=== PATIENT | female | born 1935 | race Caucasian/White ===

== ENCOUNTER 2016-05-06 05:17 | Inpatient (IN) | payer MEDICARE ==
[~2016-05-06] VITALS: Ht 157.5 cm; Wt 58.0 kg
[~2016-05-06 05:17] MED LIST: ACTONEL35 MG PO; HYDROCHLORO25 MG/TAB PO; LIPITOR10 MG PO; METOPROL TAR50 MG PO; PRILOSEC20 MG/CAP PO; TOPROL XL50 MG PO; XALATAN 0.005%2.5 ML OD; XALATAN 0.005%2.5 ML OU
[2016-05-06] MEDS ORDERED: INDERAL 20MG TA20 MG PO (05:51)
[2016-05-06] MEDS ORDERED: PRILOSEC20 MG/CAP PO (05:53)
[2016-05-06] MEDS ORDERED: VITAMIN D1000 UNIT PO (05:55)
[2016-05-06] MEDS ORDERED: CALTRATE 600 PO (05:56)
--- NOTE | 2016-05-06 06:00 | NUR ---
ARRIVED VIA [facility]. ALERT ORIENTED X 3. FEBRILE, WORKUP INITIATED. AT THE BEDSIDE
[2016-05-06 06:14] LABS: HEMATOCRIT 38.6 % (37.0-47.0); HEMOGLOBIN 12.4 g/dl (12.0-16.0); IMMATURE GRANULOCYTES 0.2 % (0.0-1.0); MEAN CELL VOLUME 91.7 fL CALC (80.0-100.0); MEAN CORPUSCULAR HGB 29.5 pG CALC (26.0-32.0); MEAN CORPUSCULAR HGB CONC 32.1 g/L CALC (32.0-36.0); NEUT# 4.9 thou/uL (2.00-7.15); RED BLOOD COUNT 4.21 mill/uL (4.20-5.60); RED CELL DISTRI WIDTH 13.2 % (11.5-15.5)
[2016-05-06 06:16] LABS: URINE BILIRUBIN - DIPSTICK NEGATIVE (NEGATIVE); URINE BLOOD DIPSTICK SMALL (NEGATIVE); URINE CLARITY CLEAR; URINE COLOR YELLOW; URINE GLUCOSE - DIPSTICK NEGATIVE (NEGATIVE); URINE KETONE NEGATIVE (NEGATIVE); URINE LEUK ESTERASE NEGATIVE (NEGATIVE); URINE NITRITE - DIPSTICK NEGATIVE (Negative); URINE PROTEIN - DIPSTICK NEGATIVE (NEG-TRACE); URINE SPECIFIC GRAVITY 1.015; URINE UROBILINOGEN - DIPSTICK 0.2 E.U./dL (0.2)
[2016-05-06 06:31] LABS: ALBUMIN 4.2 g/dL (3.2-5.0); BILIRUBIN, TOTAL 0.5 mg/dL (0.0-1.4); CALCIUM 9.5 mg/dL (8.4-10.2); CREATININE 1.8 mg/dL (0.5-1.0); POTASSIUM 4.7 mmol/l (3.5-5.1); TOTAL PROTEIN 7.4 g/dL (6.3-8.2)
[2016-05-06 06:38] LABS: INFLUENZA A NONE DETECTED (NONE DETECT); INFLUENZA B NONE DETECTED (NONE DETECT)
[2016-05-06 06:41] LABS: URINE AMORPH SEDIMENT FEW hpf (NONE-FEW); URINE BACTERIA FEW hpf; URINE HYALINE CAST FEW lpf (NONE-RARE); URINE RBC 0-2 RBC/hpf (0-5); URINE SQUAMOUS EPITHELIAL CELL FEW EPI/hpf (0-FEW); URINE WBC 0-2 WBC/hpf (0-5)
--- NOTE | 2016-05-06 06:45 | NUR ---
RECEIVED CARE OF PT. PT AWAKW ALERT AND ORIENTED X3. PT STATES SHE "JUST FEELS WEAK". IV NS INFUSING HL LT HAND ORDERED.VSS. NORESP DISTRESS. O2 SAT 94% ON RA
--- NOTE | 2016-05-06 07:08 | NUR ---
ATTEMPTED TO CALL REPORT ,NURSE IN WITH PT WILL RETURN CALL.
--- NOTE | 2016-05-06 07:22 | NUR ---
CALLED REPORT TO MONROE AVINA [facility]
--- NOTE | 2016-05-06 07:23 | NUR ---
PT TRANSPORTED TO [facility] VIA STRETCHER. TRANSFERRED TO BED WITH TWO PRINCIPAL RESEARCH ECONOMIST.NO RESP DISRTESS NOTED. IN ATTENDANCE AND TOOK PTS BELONGINGS WITH HIM INCLUDING WALLET.
[2016-05-06 07:30] VITALS: BP 118/45
--- NOTE | 2016-05-06 07:30 | NUR ---
PT ARRIVED TO FLOOR VIA STRETCHER ACCOMPANIED BY MONROE CENTENO. PT VERY WEAK, UNSTEADY GAIT. 2 STAFF ASSIST TO BED. PT DENIES PAIN. REPORTS FATIGUE. COMPLAINS OF NON-PRODUCTIVE COUGH. FALL PRECAUTIONS REINFORCED. PLAN OF CARE DISCUSSED. REPORTING OF CONCERNS ENCOURAGED. PT ORIENTED TO ROOM AND EQUIPMENT. CALL LIGHT REVIEWED AND IN REACH. PT STATES UNDERSTANDING.
[2016-05-06 07:41] VITALS: BP 118/45
[2016-05-06 10:56] VITALS: BP 110/64
[2016-05-06] MEDS ORDERED: LOPRESSOR50 M1 PO (11:50)
--- NOTE | 2016-05-06 13:37 | NUR ---
PT SLEEPING AT THIS TIME.
[2016-05-06 15:15] VITALS: BP 153/73
--- NOTE | 2016-05-06 16:36 | NUR ---
PT ASSISTED TO BSC. PT WEAK. TREMORS NOTED TO BIALTERAL HANDS AND ARMS. UNSTEADY ON FEET. FALL PRECAUTIONS REINFORCED. PT STATES UNDERSTANDING.
--- NOTE | 2016-05-06 17:33 | NUR ---
INCENTIVE SPIROMETER PROVIDED. 1000 ML INCENTIVE VOLUME ACHIEVED, GOAL OF 1500 ML SET. HOLDING OF MACHINE DIFFICULT R/T HAND TREMORS. ASSISTANCE NEEDED. PTINSTRUCTED ON USE AND INDICATION. PT STATES UNDERSTANDING. MULTIPLE FAMILY MEMBERS AT BEDSIDE. WILL CONTINUE TO MONITOR.
--- NOTE | 2016-05-06 18:07 | NUR ---
TEMP OF 101.[address] PRICE NOTIFIED. ORDER TO TYLENOL PO GIVEN. PT ASSISTED TO BSC. VERY WEAK, MAX ASSIST.
--- NOTE | 2016-05-06 19:15 | NUR ---
BEDSIDE REPORT RECEIVED FROM MONROE AVINA. PT DENIES PAIN AT THIS TIME. RESPIRATIONS EVEN AND UNLABORED. INSENTIVE SPIROMETED AT BEDSIDE AND BEING USED. PLAN OF CARE DISCUSSED. ENCOURAGED TO VERBALIZE CONCERNS. STATES UNDERSTANDING. FAMILY AT BEDSIDE. UP TO BSC AT THIS TIME. CALL LIGHT SYSTEM REVIEWED AND IN REACH.
[2016-05-06 19:19] VITALS: BP 146/75
[2016-05-06 23:21] VITALS: BP 131/71
[2016-05-07] VITALS (7 sets, daily range): BP systolic 114–204; BP diastolic 63–89
--- NOTE | 2016-05-07 | NUR ---
PT UP TO BEDSIDE COMMODE X 3 SO FAR THIS SHIFT. STATES THAT FREQUENCY IS NORMAL FOR HER. EMS SITE TO LEFT HAND DISCONTINUED AND NEW SITE TO RIGHT FORARM BEGAN AND APPEARS HEALTHY AND PATENT. IV FLUIDS INFUSING ADEQUATELY. PT DENIES PAIN AT THIS TIME. RESPIRATIONS EVEN AND UNLABORED. SAFETY MEASURES IN PLACE. CALL LIGHT IN REACH.
--- NOTE | 2016-05-07 04:23 | NUR ---
PT ASLEEP AT THIS TIME. NO PAIN OR DISCOMFORT NOTED. RESPIRATIONS EVEN AND UNLABORED. SAFETY MEASURES IN PLACE. CALL LIGHT WITHIN REACH.
[2016-05-07 05:05] LABS: HEMATOCRIT 38.2 % (37.0-47.0); HEMOGLOBIN 11.9 g/dl (12.0-16.0); MEAN CELL VOLUME 92.5 fL CALC (80.0-100.0); MEAN CORPUSCULAR HGB 28.8 pG CALC (26.0-32.0); MEAN CORPUSCULAR HGB CONC 31.2 g/L CALC (32.0-36.0); NEUT# 2.55 thou/uL (2.00-7.15); RED BLOOD COUNT 4.13 mill/uL (4.20-5.60); RED CELL DISTRI WIDTH 13.2 % (11.5-15.5)
[2016-05-07 05:14] LABS: CALCIUM 8.9 mg/dL (8.4-10.2); CREATININE 1.4 mg/dL (0.5-1.0); POTASSIUM 4.5 mmol/l (3.5-5.1)
--- NOTE | 2016-05-07 07:00 | NUR ---
SHIFT CHANGE REPORT FORM JAI MICHELE AWAKE ALERT AND ORIENTED SITTING UP IN RECLINER, DENIES PAIN/DISCOMFORT, IVF INFUSING, CALL SHETH IN REACH.
--- NOTE | 2016-05-07 12:00 | NUR ---
SITTING UP IN RECLINER HAVING MEAL, ALL NEEDS ADDRESSED, CALL SHETH IN REACH.
--- NOTE | 2016-05-07 16:00 | NUR ---
ASSISTED FROM RECLINER TO BR AND BACK TO CHAIR, FAMILY AT BEDSIDE, CALL SHETH IN REACH.
--- NOTE | 2016-05-07 20:07 | NUR ---
BEDSIDE REPORT RECEIVED FROM MONROE CONCEPCION. PT RESTING IN BED WITH FAMILY AT BEDSIDE. DENIES PAIN. RESPIRATIONS EVEN AND UNLABORED. UNDERSTANDS PLAN OF CARE. ENCOURAGED TO VERBALIZE CONCERNS. STATES UNDERSTANDING. SAFETY MEASURES IN PLACE. CALL LIGHT SYSTEM REVIEWED AND IN REACH.
--- NOTE | 2016-05-08 00:33 | NUR ---
PT ASLEEP AT THIS TIME. NO SIGNS OF PAIN OR DISCOMFORT. RESPIRATIONS EVEN AND UNLABORED. PT UP TO BSC X 4 THIS SHIFT TO VOID. STRENGTH HAS IMPROVED SINCE YESTERDAY. AT 2145 ER E/M ENGINEER CALLED TO REPORT RHYTHM CHANGES. EKG ORDERED AND DR. MOORE NOTIFIED OF RESULTS. NO NEW ORDERS AT THIS TIME. PT UNSYMPTOMATIC. SAFETY MEASURES IN PLACE. CALL LIGHT WITHIN REACH.
[2016-05-08 01:35] VITALS: BP 132/89
--- NOTE | 2016-05-08 04:14 | NUR ---
PT UP TO BSC. VOIDING FREQUENT SMALL AMOUNTS. DENIES PAIN AND SOB. IV SITE APPEARS HEALTHY AND IS PATENT. PT HAS NO REQUESTS AT THIS TIME. SAFETY MEASURES REMAIN IN PLACE. CALL LIGHT WITHIN REACH.
[2016-05-08 04:58] LABS: HEMATOCRIT 40.7 % (37.0-47.0); HEMOGLOBIN 13.1 g/dl (12.0-16.0); IMMATURE GRANULOCYTES 0.3 % (0.0-1.0); MEAN CELL VOLUME 90.8 fL CALC (80.0-100.0); MEAN CORPUSCULAR HGB 29.2 pG CALC (26.0-32.0); MEAN CORPUSCULAR HGB CONC 32.2 g/L CALC (32.0-36.0); NEUT# 1.83 thou/uL (2.00-7.15); RED BLOOD COUNT 4.48 mill/uL (4.20-5.60); RED CELL DISTRI WIDTH 13.1 % (11.5-15.5)
[2016-05-08 05:00] VITALS: BP 167/87
[2016-05-08 05:22] LABS: ALBUMIN 3.5 g/dL (3.2-5.0); BILIRUBIN, TOTAL 0.4 mg/dL (0.0-1.4); CALCIUM 9.5 mg/dL (8.4-10.2); CREATININE 1.4 mg/dL (0.5-1.0); POTASSIUM 4.3 mmol/l (3.5-5.1); TOTAL PROTEIN 6.3 g/dL (6.3-8.2)
[2016-05-08 08:10] VITALS: BP 157/90
--- NOTE | 2016-05-08 08:10 | NUR ---
PT IS SITTING UP IN THE CHAIR., NO DISTRESS NOTED. IV SITE IS FREE FROM REDNESS OR EDEMA. ASSESSMENT IS COMPLETED:
[2016-05-08] MEDS ORDERED: LEVAQUIN500 MG PO (10:10)
[2016-05-08 10:47] VITALS: BP 169/79
--- NOTE | 2016-05-08 11:58 | NUR ---
IV SITE IS DISCONITNUED CATHETE INTACT. NO REDNESS OR EDEMA. TELE MONITOR OFF. DISCHARGE INSTRUCTIONS GIVEN AND VERBALIZED UNDERSTANDING.FAMILY IN THE ROOM. Discharge instructions given. Patient verbalizes understanding of same. Discharged in stable condition via Wheelchair to Home with family. All belongings sent with pt.
--- NOTE | 2016-05-08 12:02 | NUR ---
SPOKE WITH NAYLA TREJO RN FROM HOME HEALTH WILL SEE PT TOMORROW. WILL CALL LATER TODAY
== END 2016-05-08 11:00 | DRG 203 ==
LOC: ENPENDDIS → ED 05:17 → ED-I 06:41 → ED 06:45 → MS2 06:46
PROVIDERS: Emergency Medicine; Internal Medicine; ADMIT Internal Medicine; ATTEND Internal Medicine
DX: J20.9 Acute bronchitis, unspecified (principal); E86.0 Dehydration; I10 Essential (primary) hypertension; E78.5 Hyperlipidemia, unspecified; R25.1 Tremor, unspecified

== ENCOUNTER 2017-04-16 09:38 | Emergency (ER) | payer MEDICARE ==
[~2017-04-16] VITALS: Ht 157.5 cm; Wt 58.2 kg
[~2017-04-16 09:38] MED LIST changes: +CALTRATE 600 PO; +INDERAL 20MG TA20 MG PO; +LEVAQUIN500 MG PO; +LOPRESSOR50 M1 PO; +VITAMIN D1000 UNIT PO
[2017-04-16] MEDS ORDERED: JANTOVEN3 MG PO ×2 (09:47→09:48)
[2017-04-16 11:13] LABS: HEMOGLOBIN 10.8 g/dl (12.0-16.0); IMMATURE GRANULOCYTES 0.1 % (0.0-1.0); MEAN CELL VOLUME 94.7 fL CALC (80.0-100.0); MEAN CORPUSCULAR HGB 30.1 pG CALC (26.0-32.0); MEAN CORPUSCULAR HGB CONC 31.8 g/L CALC (32.0-36.0); NEUT# 6.97 thou/uL (2.00-7.15); RED BLOOD COUNT 3.59 mill/uL (4.20-5.60); RED CELL DISTRI WIDTH 13.3 % (11.5-15.5)
[2017-04-16 11:26] LABS: ALBUMIN 3.3 g/dL (3.2-5.0); BILIRUBIN, TOTAL 0.7 mg/dL (0.0-1.4); CREATININE 1.6 mg/dL (0.5-1.0); POTASSIUM 4.6 mmol/l (3.5-5.1); TOTAL PROTEIN 5.7 g/dL (6.3-8.2)
[2017-04-16 11:34] LABS: INTERNATIONAL NORMALIZED RATIO 5.3 RATIO (0.7-1.3); PROTHROMBIN TIME 61.7 SECONDS (9.0-12.5)
[2017-04-16] MEDS ORDERED: HYDROCO/APAP1 TA9 PO (17:53)
[2017-04-16] MEDS ORDERED: MOTRIN400 MG PO (17:53)
[2017-04-16] MEDS ORDERED: MIRALAX3350 N1 PO (18:03)
[2017-04-16 18:15] VITALS: BP 127/57
== END 2017-04-16 18:30 | disposition home or self-care (01) ==
LOC: ED 09:38
PROVIDERS: Family Medicine
PROC: 0RSJXZZ Reposition Right Shoulder Joint, External Approach (ICD-10-PCS; principal; 2017-04-16)
DX: S43.031A Inferior subluxation of right humerus, initial encounter (principal); I48.91 Unspecified atrial fibrillation; G20 Parkinson's disease; K21.9 Gastro-esophageal reflux disease without esophagitis; X50.0XXA Overexertion from strenuous movement or load, initial encounter; Y93.9 Activity, unspecified; Y92.009 Unspecified place in unspecified non-institutional (private) residence as the place of occurrence of the external cause

== ENCOUNTER 2018-08-09 09:40 | Inpatient (IN) | payer MEDICARE ==
[2018-08-09] VITALS (17 sets, daily range): BP systolic 91–219; BP diastolic 45–84
[~2018-08-09] VITALS: Ht 152.4 cm; Wt 58.1 kg
[~2018-08-09 09:40] MED LIST changes: +HYDROCO/APAP1 TA9 PO; +JANTOVEN3 MG PO; +MIRALAX3350 N1 PO; +MOTRIN400 MG PO
[2018-08-09 11:08] LABS: HEMATOCRIT 35.5 % (37.0-47.0); HEMOGLOBIN 11.2 g/dl (12.0-16.0); IMMATURE GRANULOCYTES 0.3 % (0.0-5.0); MEAN CELL VOLUME 93.7 fL CALC (80.0-100.0); MEAN CORPUSCULAR HGB 29.6 pG CALC (26.0-32.0); MEAN CORPUSCULAR HGB CONC 31.5 g/L CALC (32.0-36.0); NEUT# 3.95 thou/uL (2.00-7.15); RED BLOOD COUNT 3.79 mill/uL (4.20-5.60); RED CELL DISTRI WIDTH 13.9 % (11.5-15.5)
[2018-08-09 11:25] LABS: INTERNATIONAL NORMALIZED RATIO 2.2 RATIO (0.7-1.3); PROTHROMBIN TIME 22.4 SECONDS (9.0-12.5)
[2018-08-09 11:32] LABS: ALBUMIN 3.7 g/dL (3.2-5.0); BILIRUBIN, TOTAL 0.6 mg/dL (0.0-1.4); CREATININE 1.7 mg/dL (0.5-1.0); TOTAL PROTEIN 6.2 g/dL (6.3-8.2)
[2018-08-09 11:35] LABS: POTASSIUM 5.2 mmol/l (3.5-5.1)
[2018-08-09 13:02] LABS: URINE BILIRUBIN - DIPSTICK NEGATIVE (NEGATIVE); URINE BLOOD DIPSTICK NEGATIVE (NEGATIVE); URINE COLOR YELLOW; URINE GLUCOSE - DIPSTICK NEGATIVE (NEGATIVE); URINE KETONE NEGATIVE (NEGATIVE); URINE NITRITE - DIPSTICK NEGATIVE (Negative); URINE PH 5.5 (4.5-8.0); URINE PROTEIN - DIPSTICK TRACE mg/dL (NEG-TRACE); URINE SPECIFIC GRAVITY 1.015; URINE UROBILINOGEN - DIPSTICK 0.2 E.U./dL (0.2)
[2018-08-09 13:04] LABS: URINE LEUK ESTERASE LARGE (NEGATIVE)
[2018-08-09] MEDS ORDERED: ALENDRONATE70 MG PO (13:07)
[2018-08-09] MEDS ORDERED: DITROPAN PO (13:08)
[2018-08-09 13:12] LABS: URINE BACTERIA MANY hpf; URINE WBC >100 WBC/hpf (0-5)
[2018-08-09] MEDS ORDERED: CYANOCOBAL1000 MCG/M IM (13:12)
[2018-08-09 13:13] LABS: URINE SQUAMOUS EPITHELIAL CELL MODERATE EPI/hpf (0-FEW); URINE TRANSITIONAL EPI. CELLS FEW hpf
[2018-08-09] MEDS ORDERED: CARB/LEVO SR PO (13:14)
[2018-08-10] VITALS (14 sets, daily range): BP systolic 95–200; BP diastolic 51–84
[2018-08-10 03:46] LABS: HEMATOCRIT 36.4 % (37.0-47.0); HEMOGLOBIN 11.6 g/dl (12.0-16.0); IMMATURE GRANULOCYTES 0.2 % (0.0-5.0); MEAN CELL VOLUME 93.1 fL CALC (80.0-100.0); MEAN CORPUSCULAR HGB 29.7 pG CALC (26.0-32.0); MEAN CORPUSCULAR HGB CONC 31.9 g/L CALC (32.0-36.0); NEUT# 3.57 thou/uL (2.00-7.15); RED BLOOD COUNT 3.91 mill/uL (4.20-5.60)
[2018-08-10 04:05] LABS: ALBUMIN 3.5 g/dL (3.2-5.0); ALKALINE PHOSPHATASE 81 u/l (38-126); ANION GAP 11 (6-22 (CALC)); BILIRUBIN, TOTAL 0.6 mg/dL (0.0-1.4); BUN 40 mg/dL (8-23); BUN/CREATININE RATIO 25 (12-20 (CALC)); CARBON DIOXIDE 22 mmol/l (22-30); CHLORIDE 112 mmol/l (95-108); CREATININE 1.6 mg/dL (0.5-1.0); GFR 31 ML/MIN (>=60 (CALC)); GFR FOR AFR.AMER. 37 ML/MIN (>=60 (CALC)); POTASSIUM 5.1 mmol/l (3.5-5.1); SGOT/AST 20 u/l (9-36); SODIUM 140 mmol/l (137-146)
[2018-08-10 04:11] LABS: MAGNESIUM 1.9 mg/dL (1.6-2.3)
[2018-08-11] VITALS (7 sets, daily range): BP systolic 120–176; BP diastolic 59–74
[2018-08-11 05:16] LABS: HEMATOCRIT 34.1 % (37.0-47.0); HEMOGLOBIN 10.9 g/dl (12.0-16.0); IMMATURE GRANULOCYTES 0.2 % (0.0-5.0); MEAN CELL VOLUME 92.9 fL CALC (80.0-100.0); MEAN CORPUSCULAR HGB 29.7 pG CALC (26.0-32.0); NEUT# 3.56 thou/uL (2.00-7.15); RED BLOOD COUNT 3.67 mill/uL (4.20-5.60)
[2018-08-11 05:33] LABS: INTERNATIONAL NORMALIZED RATIO 2.6 RATIO (0.7-1.3); PROTHROMBIN TIME 27.2 SECONDS (9.0-12.5)
[2018-08-11 06:03] LABS: ALBUMIN 3.2 g/dL (3.2-5.0); ALKALINE PHOSPHATASE 77 u/l (38-126); ANION GAP 11 (6-22 (CALC)); BILIRUBIN, TOTAL 0.5 mg/dL (0.0-1.4); BUN 39 mg/dL (8-23); BUN/CREATININE RATIO 24 (12-20 (CALC)); CARBON DIOXIDE 21 mmol/l (22-30); CHLORIDE 112 mmol/l (95-108); CREATININE 1.7 mg/dL (0.5-1.0); GFR 29 ML/MIN (>=60 (CALC)); GFR FOR AFR.AMER. 35 ML/MIN (>=60 (CALC)); MAGNESIUM 1.9 mg/dL (1.6-2.3); POTASSIUM 4.8 mmol/l (3.5-5.1); SGOT/AST 21 u/l (9-36); SODIUM 139 mmol/l (137-146); TOTAL PROTEIN 5.8 g/dL (6.3-8.2)
[2018-08-11] MEDS ORDERED: CIPROFLOXACN500 MG PO (12:11)
== END 2018-08-11 12:44 | DRG 309 ==
LOC: ICU 09:40
PROVIDERS: Internal Medicine Nephrology; ADMIT Internal Medicine; ATTEND Internal Medicine
DX: R00.1 Bradycardia, unspecified (principal); N39.0 Urinary tract infection, site not specified; I49.3 Ventricular premature depolarization; I12.9 Hypertensive chronic kidney disease with stage 1 through stage 4 chronic kidney disease, or unspecified chronic kidney disease; N18.3 Chronic kidney disease, stage 3 (moderate); I48.0 Paroxysmal atrial fibrillation; D63.8 Anemia in other chronic diseases classified elsewhere; E78.5 Hyperlipidemia, unspecified; G20 Parkinson's disease; M19.90 Unspecified osteoarthritis, unspecified site; R00.8 Other abnormalities of heart beat; B96.20 Unspecified Escherichia coli [E. coli] as the cause of diseases classified elsewhere

== ENCOUNTER 2018-08-28 10:09 | Emergency (ER) | payer MEDICARE ==
[~2018-08-28] VITALS: Ht 152.4 cm; Wt 59.1 kg
[~2018-08-28 10:09] MED LIST changes: +ALENDRONATE70 MG PO; +CARB/LEVO SR PO; +CIPROFLOXACN500 MG PO; +CYANOCOBAL1000 MCG/M IM; +DITROPAN PO
[2018-08-28 10:30] LABS: HEMATOCRIT 33.3 % (37.0-47.0); HEMOGLOBIN 10.7 g/dl (12.0-16.0); IMMATURE GRANULOCYTES 0.5 % (0.0-5.0); MEAN CELL VOLUME 93.3 fL CALC (80.0-100.0); MEAN CORPUSCULAR HGB CONC 32.1 g/L CALC (32.0-36.0); NEUT# 5.9 thou/uL (2.00-7.15); RED BLOOD COUNT 3.57 mill/uL (4.20-5.60); RED CELL DISTRI WIDTH 13.9 % (11.5-15.5)
[2018-08-28 11:15] LABS: ALBUMIN 3.7 g/dL (3.2-5.0); BILIRUBIN, TOTAL 0.6 mg/dL (0.0-1.4); CREATININE 1.7 mg/dL (0.5-1.0); TOTAL PROTEIN 6.3 g/dL (6.3-8.2)
[2018-08-28 11:17] LABS: POTASSIUM 5.3 mmol/l (3.5-5.1)
[2018-08-28 11:28] LABS: INTERNATIONAL NORMALIZED RATIO 3.2 RATIO (0.7-1.3); PROTHROMBIN TIME 31.7 SECONDS (9.0-12.5)
[2018-08-28 14:41] VITALS: BP 196/87
== END 2018-08-28 14:41 ==
LOC: ED 10:09
PROVIDERS: Emergency Medicine
DX: S72.011A Unspecified intracapsular fracture of right femur, initial encounter for closed fracture (principal); S00.83XA Contusion of other part of head, initial encounter; S61.411A Laceration without foreign body of right hand, initial encounter; I48.91 Unspecified atrial fibrillation; G20 Parkinson's disease; K21.9 Gastro-esophageal reflux disease without esophagitis; W18.30XA Fall on same level, unspecified, initial encounter; Y92.000 Kitchen of unspecified non-institutional (private) residence as the place of occurrence of the external cause; Z79.01 Long term (current) use of anticoagulants

== ENCOUNTER 2019-02-11 13:06 | Observation (INO) | payer MEDICARE ==
[~2019-02-11] VITALS: Ht 157.5 cm; Wt 54.0 kg
[~2019-02-11 13:06] MED LIST changes: +JANTOVEN2 MG PO; +LIPITOR20 MG PO
[2019-02-11 14:18] LABS: HEMATOCRIT 36.5 % (37.0-47.0); HEMOGLOBIN 11.5 g/dl (12.0-16.0); IMMATURE GRANULOCYTES 0.7 % (0.0-5.0); MEAN CELL VOLUME 94.1 fL CALC (80.0-100.0); MEAN CORPUSCULAR HGB 29.6 pG CALC (26.0-32.0); MEAN CORPUSCULAR HGB CONC 31.5 g/L CALC (32.0-36.0); NEUT# 5.81 thou/uL (2.00-7.15); RED BLOOD COUNT 3.88 mill/uL (4.20-5.60); RED CELL DISTRI WIDTH 14.1 % (11.5-15.5)
[2019-02-11 14:39] LABS: ALBUMIN 3.6 g/dL (3.2-5.0); ALKALINE PHOSPHATASE 85 u/l (38-126); ANION GAP 14 (6-22 (CALC)); BILIRUBIN, TOTAL 0.5 mg/dL (0.0-1.4); BUN 40 mg/dL (8-23); BUN/CREATININE RATIO 24 (12-20 (CALC)); CARBON DIOXIDE 21 mmol/l (22-30); CHLORIDE 108 mmol/l (95-108); CREATININE 1.7 mg/dL (0.5-1.0); GFR 29 ML/MIN (>=60 (CALC)); GFR FOR AFR.AMER. 35 ML/MIN (>=60 (CALC)); SGOT/AST 27 u/l (9-36); SODIUM 138 mmol/l (137-146); TOTAL PROTEIN 7.1 g/dL (6.3-8.2)
[2019-02-11 14:41] LABS: INTERNATIONAL NORMALIZED RATIO 3.7 RATIO (0.7-1.3); POTASSIUM 5.2 mmol/l (3.5-5.1); PROTHROMBIN TIME 36.9 SECONDS (9.0-12.5)
[2019-02-11 14:51] LABS: MYOGLOBIN 91 ng/mL (0 - 62)
[2019-02-11] MEDS ORDERED: TRIMETHOPRIM100 MG PO (15:20)
[2019-02-11 17:05] VITALS: BP 154/51
[2019-02-11 19:16] VITALS: BP 140/65
[2019-02-11 22:29] LABS: URINE BILIRUBIN - DIPSTICK NEGATIVE (NEGATIVE); URINE BLOOD DIPSTICK NEGATIVE (NEGATIVE); URINE CLARITY CLEAR; URINE COLOR YELLOW; URINE GLUCOSE - DIPSTICK NEGATIVE (NEGATIVE); URINE KETONE NEGATIVE (NEGATIVE); URINE LEUK ESTERASE NEGATIVE (Negative); URINE NITRITE - DIPSTICK NEGATIVE (Negative); URINE PROTEIN - DIPSTICK NEGATIVE (NEG-TRACE); URINE SPECIFIC GRAVITY 1.025; URINE UROBILINOGEN - DIPSTICK 0.2 E.U./dL (0.2)
[2019-02-11 23:45] VITALS: BP 127/70
[2019-02-12 04:52] VITALS: BP 149/62
[2019-02-12 05:44] LABS: HEMATOCRIT 35.8 % (37.0-47.0); HEMOGLOBIN 10.9 g/dl (12.0-16.0); MEAN CELL VOLUME 96.8 fL CALC (80.0-100.0); MEAN CORPUSCULAR HGB 29.5 pG CALC (26.0-32.0); MEAN CORPUSCULAR HGB CONC 30.4 g/L CALC (32.0-36.0); RED BLOOD COUNT 3.7 mill/uL (4.20-5.60); RED CELL DISTRI WIDTH 13.9 % (11.5-15.5)
[2019-02-12 05:51] LABS: INTERNATIONAL NORMALIZED RATIO 4.1 RATIO (0.7-1.3); PROTHROMBIN TIME 40.5 SECONDS (9.0-12.5)
[2019-02-12 05:58] LABS: CREATININE 1.5 mg/dL (0.5-1.0); POTASSIUM 4.9 mmol/l (3.5-5.1)
[2019-02-12 08:50] VITALS: BP 154/71
[2019-02-12 11:46] VITALS: BP 169/74
[2019-02-12 14:45] VITALS: BP 126/74
[2019-02-12 19:36] VITALS: BP 101/65
[2019-02-13 04:30] VITALS: BP 143/75
[2019-02-13 05:21] LABS: INTERNATIONAL NORMALIZED RATIO 2.6 RATIO (0.7-1.3); PROTHROMBIN TIME 25.6 SECONDS (9.0-12.5)
[2019-02-13 05:30] LABS: CREATININE 1.7 mg/dL (0.5-1.0); POTASSIUM 4.9 mmol/l (3.5-5.1)
[2019-02-13 07:57] VITALS: BP 127/67
[2019-02-13] MEDS ORDERED: CIPROFLOXACN500 MG PO (10:22)
== END 2019-02-13 11:15 ==
LOC: ED 13:06 → ED-I 14:38 → ED 14:49 → MS2 14:50
PROVIDERS: Emergency Medicine; ADMIT Internal Medicine; ATTEND Internal Medicine
PROC: 0HQ0XZZ Repair Scalp Skin, External Approach (ICD-10-PCS; principal; 2019-02-11)
DX: S01.01XA Laceration without foreign body of scalp, initial encounter (principal); N30.90 Cystitis, unspecified without hematuria; I48.91 Unspecified atrial fibrillation; G20 Parkinson's disease; E78.5 Hyperlipidemia, unspecified; R79.1 Abnormal coagulation profile; R50.9 Fever, unspecified; D63.8 Anemia in other chronic diseases classified elsewhere; B96.5 Pseudomonas (aeruginosa) (mallei) (pseudomallei) as the cause of diseases classified elsewhere; T45.515A Adverse effect of anticoagulants, initial encounter; V48.4XXA Person boarding or alighting a car injured in noncollision transport accident, initial encounter; Z79.01 Long term (current) use of anticoagulants; Z95.0 Presence of cardiac pacemaker; R53.1 Weakness; R42 Dizziness and giddiness; S06.349A Traumatic hemorrhage of right cerebrum with loss of consciousness of unspecified duration, initial encounter; I10 Essential (primary) hypertension; A41.9 Sepsis, unspecified organism; Z88.0 Allergy status to penicillin
CPT/HCPCS: G0378

== ENCOUNTER 2019-02-13 | Emergency (ER) | payer MEDICARE ==
[~2019-02-13] MED LIST changes: +TRIMETHOPRIM100 MG PO
[2019-02-13] MEDS ORDERED: CIPROFLOXACN500 MG PO (10:22)
[2019-02-13 20:46] LABS: HEMOGLOBIN 10.9 g/dl (12.0-16.0); IMMATURE GRANULOCYTES 0.5 % (0.0-5.0); MEAN CELL VOLUME 96.7 fL CALC (80.0-100.0); MEAN CORPUSCULAR HGB 30.1 pG CALC (26.0-32.0); MEAN CORPUSCULAR HGB CONC 31.1 g/L CALC (32.0-36.0); NEUT# 8.16 thou/uL (2.00-7.15); RED BLOOD COUNT 3.62 mill/uL (4.20-5.60); RED CELL DISTRI WIDTH 14.3 % (11.5-15.5)
[2019-02-13 21:09] LABS: ACT PARTIAL THROMBO TIME 31.9 SECONDS (20.0-32.5); ALBUMIN 3.4 g/dL (3.2-5.0); BILIRUBIN, TOTAL 0.6 mg/dL (0.0-1.4); CREATININE 1.8 mg/dL (0.5-1.0); INTERNATIONAL NORMALIZED RATIO 2.1 RATIO (0.7-1.3); MAGNESIUM 1.7 mg/dL (1.6-2.3); POTASSIUM 4.8 mmol/l (3.5-5.1); PROTHROMBIN TIME 21.1 SECONDS (9.0-12.5); TOTAL PROTEIN 6.5 g/dL (6.3-8.2)
== END 2019-02-13 22:42 | disposition short-term general hospital (02) ==
DX: S06.349A Traumatic hemorrhage of right cerebrum with loss of consciousness of unspecified duration, initial encounter (principal); I10 Essential (primary) hypertension; A41.9 Sepsis, unspecified organism; N39.0 Urinary tract infection, site not specified; I48.91 Unspecified atrial fibrillation; G20 Parkinson's disease; W19.XXXA Unspecified fall, initial encounter; Z95.0 Presence of cardiac pacemaker; Z88.0 Allergy status to penicillin; Z79.01 Long term (current) use of anticoagulants

== ENCOUNTER 2019-04-25 11:15 | Inpatient (IN) | payer MEDICARE ==
[~2019-04-25] VITALS: Ht 157.5 cm; Wt 60.2 kg
--- NOTE | 2019-04-25 11:17 | NUR ---
PT TO ROOM VIA WC; AOX4; CLEAR SPEECH NOTED; SENT BY HOME [facility] NURSE SANKET, CALLED REPORT STATED PT HAD SLURRED SPEECH SINCE TUESDAY, RIGHT SIDED WEAKNESS AND HALLUCINATIONS; NO S/S AT THIS TIME
[2019-04-25 11:46] LABS: HEMATOCRIT 31.3 % (37.0-47.0); IMMATURE GRANULOCYTES 0.1 % (0.0-5.0); MEAN CORPUSCULAR HGB 29.2 pG CALC (26.0-32.0); MEAN CORPUSCULAR HGB CONC 31.9 g/dL CAL (32.0-36.0); NEUT# 4.21 thou/uL (2.00-7.15); RED BLOOD COUNT 3.43 mill/uL (4.20-5.60); RED CELL DISTRI WIDTH 14.2 % (11.5-15.5)
[2019-04-25 11:56] LABS: MEAN CELL VOLUME 91.3 fL CALC (80.0-100.0)
[2019-04-25 12:08] LABS: ACT PARTIAL THROMBO TIME 41.9 SECONDS (20.0-32.5)
[2019-04-25 12:10] LABS: ALBUMIN 3.5 g/dL (3.2-5.0); BILIRUBIN, TOTAL 0.6 mg/dL (0.0-1.4); CREATININE 1.6 mg/dL (0.5-1.0); POTASSIUM 5.5 mmol/l (3.5-5.1); TOTAL PROTEIN 6.3 g/dL (6.3-8.2)
--- NOTE | 2019-04-25 12:10 | NUR ---
PT RESTING ON STRETCHER; NO S/S OF DISTRESS NOTED; ADVISED OF CONTINUED WAIT TIME; PT AOX3; FAMILY AT BEDSIDE; VSS; WILL CONTINUE TO MONITOR
[2019-04-25 12:17] LABS: INTERNATIONAL NORMALIZED RATIO 3.3 RATIO (0.7-1.3); PROTHROMBIN TIME 32.5 SECONDS (9.0-12.5)
--- NOTE | 2019-04-25 13:00 | NUR ---
PERMISSION GIVEN TO UPDATE DAUGHTER WITH TEST RESULTS AND POSSIBLE PLAN OF CARE. WITNESSED BY SAUL LING RN.
--- NOTE | 2019-04-25 13:10 | NUR ---
PT RESTING ON STRETCHER; NO S/S OF DISTRESS NOTED; DR LOPEZ AT BEDSIDE TO DISCUSS FINDINGS AND POC
[2019-04-25 13:28] LABS: URINE BILIRUBIN - DIPSTICK NEGATIVE (NEGATIVE); URINE BLOOD DIPSTICK NEGATIVE (NEGATIVE); URINE COLOR YELLOW; URINE GLUCOSE - DIPSTICK NEGATIVE (NEGATIVE); URINE KETONE NEGATIVE (NEGATIVE); URINE LEUK ESTERASE TRACE (NEGATIVE); URINE NITRITE - DIPSTICK NEGATIVE (Negative); URINE PROTEIN - DIPSTICK NEGATIVE (NEG-TRACE); URINE UROBILINOGEN - DIPSTICK 0.2 E.U./dL (0.2)
[2019-04-25] MEDS ORDERED: METOPROL TAR25 M1 PO (13:53)
[2019-04-25] MEDS ORDERED: BAYER ASPIRIN E81 MG PO (13:54)
--- NOTE | 2019-04-25 14:10 | NUR ---
PT RESTING ON STRETCHER; NO S/S OF DISTRESS NOTED; VSS; ADVISED OF CONTINUED WAIT TIME; WILL CONTINUE TO MONITOR
--- NOTE | 2019-04-25 15:00 | NUR ---
Admission Note Report Given to: MONROE CONCEPCION Transported by: Wheelchair X Stretcher Transported with: X Nurse Transporter X Patent IV O2 Rn Appeals Location: ICU X MS2
[2019-04-25 15:36] VITALS: BP 133/79
--- NOTE | 2019-04-25 16:16 | NUR ---
REPORT RECEIVED FROM SAUL JIMENEZ, PT ARRIVED ON UNIT @ 2068 TRANSPORTED VIA STRETCHER AND TRANSFERRED TO BED. ALERT AND ORIENTED X 4, DENIES DISCOMFORT, OIENTED TO ROOM AND CALL SHETH, SETTLED IN BED, COMFORT STATION ATTENDANT AND SPOUSE AT BEDSIDE.
[2019-04-25 18:34] VITALS: BP 124/77
--- NOTE | 2019-04-25 20:25 | NUR ---
PHYSICAL ASSESMENT COMPLETE. PLAN OF CARE REVIEWED. PT VERBALIZES UNDERSTANDING AND DENIES QUESTIONS. PT TOLERATED HS MEDS WHOLE W/ SIPS H20. DENIES FURTHER NEEDS @ THIS TIME. CALL SHETH WITHIN REACH. AGREES TO CALL PRN. BED LOCKED IN LOW POSITION W/ BEDRAILS UPX2. ITEMS WITHIN REACH.
--- NOTE | 2019-04-26 00:10 | NUR ---
PT SLEEPING, APPEARS COMFORTABLE AND IN NO DISTRESS, RESP REG & UNLABORED. WAKES EASILY. ASSESMENT UNCHANGED. DENIES NEEDS @ THIS TIME. CALL SHETH REMAINS WITHIN REACH. AGREES TO CALL PRN. FALL AND SAFETY INTERVENTIONS REMAIN IN PLACE.
[2019-04-26 03:48] VITALS: BP 128/83
[2019-04-26 05:18] LABS: HEMATOCRIT 31.3 % (37.0-47.0); HEMOGLOBIN 9.9 g/dl (12.0-16.0); MEAN CELL VOLUME 91.8 fL CALC (80.0-100.0); MEAN CORPUSCULAR HGB CONC 31.6 g/dL CAL (32.0-36.0); RED BLOOD COUNT 3.41 mill/uL (4.20-5.60); RED CELL DISTRI WIDTH 14.2 % (11.5-15.5)
[2019-04-26 05:33] LABS: INTERNATIONAL NORMALIZED RATIO 2.8 RATIO (0.7-1.3); PROTHROMBIN TIME 27.7 SECONDS (9.0-12.5)
[2019-04-26 05:40] LABS: CREATININE 1.3 mg/dL (0.5-1.0); MAGNESIUM 1.8 mg/dL (1.6-2.3)
[2019-04-26 05:50] LABS: POTASSIUM 5.2 mmol/l (3.5-5.1)
--- NOTE | 2019-04-26 07:10 | NUR ---
REPORT RECEIVED FROM ORMARN;PT RESTING IN SEMI FOWLERS POSITION;INTRODUCED SELF TO PT AND POC DISCUSSED;RESPIRATIONS APPEAR EVEN AND UNLABORED ON RA;PT DENIES ANY CURRENT PAIN OR NEEDS;IV SITE PATENT INFUSING NS PER ORDER;PT DENIES ANY ADDITIONAL NEEDS AND IS ENCOURAGED TO CALL FOR ASSISTANCE IF NEEDED;FALL PRECAUTIONS IN PLACE WITH BED IN THE LOWEST POSITION AND CALL LIGHT IN REACH;WILL CONTINUE TO MONITOR
[2019-04-26 09:07] VITALS: BP 124/70
--- NOTE | 2019-04-26 11:15 | NUR ---
AT BEDSIDE DISCUSSING POC WITH PT AND SPOUSE.
[2019-04-26 11:47] VITALS: BP 130/96
--- NOTE | 2019-04-26 11:50 | NUR ---
PT RESTING IN SEMI FOWLERS POSITION WITH SPOUSE AT BEDSIDE;RESPIRATIONS EVEN AND UNLABORED ON O2 @ 2L VIA NC;O2 WAS INITIATED AT 1030 DUE TO O2 SATS BEING HIGH 80'S WHICH QUICKY ALEE AFTER INITATION;PT DENIES ANY CURRENT PAIN OR DISCOMFORTS;IV FLUIDS CONTINUED TO INFUSE WITH EASE PER ORDER;ASSESSMENT REMAINS UNCHANGED AT THIS TIME;PT ENCOURAGED TO CALL FOR ASSISTANCE IF NEEDED;FALL PRECAUTIONS IN PLACE WITH CALL LIGHT IN REACH;WILL CONTINUE TO MONITOR
[2019-04-26 15:29] VITALS: BP 102/65
--- NOTE | 2019-04-26 15:40 | NUR ---
PT RESTING IN SEMI FOWLERS POSITION;RESPIRATIONS EVEN AND UNLABORED ON O2 @ 2L VIA NC;PT DENIES ANY CURRENT PAIN OR DISCOMFORTS;IV FLUIDS CONTINUE TO INFUSE WITH EASE PER ORDER;PT ENCOURAGED TO CALL FOR ASSISTANCE IF NEEDED;FALL PRECAUTIONS IN PLACE WITH CALL LIGHT IN REACH;WILL CONTINUE TO MONITOR
[2019-04-26 18:49] VITALS: BP 103/59
--- NOTE | 2019-04-26 19:45 | NUR ---
PHYISCAL ASSESMENT COMPLETE. PLAN OF CARE REVIEWED W/ PT. PT VERBALIZES UNDERSTANDING, DENIES QUESTIONS @ THIS TIME. OFFERED PT SNACK, PT DECLINES. REQUEST APPLE JUICE ONLY. X1 120ML JUICE CUP PROVIDED. PT DENIES FURTHER NEEDS @ THIS TIME. BED LOCKED IN LOW POSITION W/ BEDRAILS UPX2. ITEMS WITHIN REACH. CALL SHETH WITHIN REACH. AGREES TO CALL PRN.
--- NOTE | 2019-04-27 00:09 | NUR ---
PT APPEARS TO BE SLEEPING COMFORTABLY. NO APPARENT DISTRESS. RESP REGULAR & UNLABORED. BED REMAINS LOCKED IN LOW POSITION W/ BEDRAILS UPX2. ITEMS REMAIN WITHIN REACH. CALL SHETH REMAINS WITHIN REACH.
[2019-04-27 04:00] VITALS: BP 125/67
[2019-04-27 05:47] LABS: HEMATOCRIT 30.4 % (37.0-47.0); HEMOGLOBIN 9.6 g/dl (12.0-16.0); MEAN CELL VOLUME 92.1 fL CALC (80.0-100.0); MEAN CORPUSCULAR HGB 29.1 pG CALC (26.0-32.0); MEAN CORPUSCULAR HGB CONC 31.6 g/dL CAL (32.0-36.0); RED BLOOD COUNT 3.3 mill/uL (4.20-5.60); RED CELL DISTRI WIDTH 14.2 % (11.5-15.5)
[2019-04-27 06:10] LABS: CREATININE 1.2 mg/dL (0.5-1.0); MAGNESIUM 1.8 mg/dL (1.6-2.3); POTASSIUM 4.9 mmol/l (3.5-5.1)
--- NOTE | 2019-04-27 07:15 | NUR ---
REPORT RECEIVED FROM ROMARN;PT RESTING IN SEMI FOWLERS POSITION;INTRODUCED SELF TO PT AND POC DISCUSSED;RESPIRATIONS SHALLOW ON O2 @ 2L VIA NC;PT DENIES ANY CURRENT PAIN OR NEEDS;IV FLUIDS INFUSING WITH EASE PER ORDER;PT ENCOURAGED TO CALL FOR ASSISTANCE IF NEEDED;BED IN THE LOWEST POSITION WITH CALL LIGHT IN REACH;WILL CONTINUE TO MONITOR
--- NOTE | 2019-04-27 09:10 | NUR ---
PT RESTING IN SEMI FOWLERS POSITION,A&O X3 WITH X2 VISITORS AT BEDSIDE;VS OBTAINED AND ASSESSMENT COMPLETED;RESPIRATIONS EVEN AND UNLABORED ON RA,DIMINISHED LUNG SOUNDS;ABDOMEN SOFT ON PALPATIONS AND ACTIVE IN ALL 4 QUADRANTS;WEAK PEDAL PULSES;GENERALIZED BRUISING NOTED AND REDDENING NOTED TO COCCYX;#20G TO LAC FLUSHED AND PATENT AND #20G TO LFA INFUSING NS @ 100ML/HR;PT DENIES ANY ADDITIONAL NEEDS AT THIS TIME AND IS ENCOURAGED TO CALL FOR ASSISTANCE IF NEEDED;FALL PRECAUTIONS IN PLACE WITH BED IN THE LOWEST POSITION AND CALL LIGHT IN REACH;WILL CONTINUE TO MONITOR
[2019-04-27 09:12] VITALS: BP 116/61
--- NOTE | 2019-04-27 11:08 | NUR ---
AT BEDSIDE DISCUSSING POC WITH PT AND SPOUSE.
[2019-04-27 11:26] VITALS: BP 131/76
--- NOTE | 2019-04-27 12:25 | NUR ---
PT RESTING IN SEMI FOWLERS POSITION WITH AT BEDSIDE;RESPIRATIONS EVEN AND UNLABORED ON RA;PT DENIES ANY CURRENT PAIN OR DISCOMFORTS;IV FLUIDS INFUSING WITH EASE PER ORDER;ASSESSMENT REMAINS UNCHANGED AT THIS TIME;PT ENCOURAGED TO CALL FOR ASSISTANCE IF NEEDED;CALL LIGHT IN REACH;WILL CONTINUE TO MONITOR
[2019-04-27 13:58] LABS: INTERNATIONAL NORMALIZED RATIO 2.2 RATIO (0.7-1.3); PROTHROMBIN TIME 22.4 SECONDS (9.0-12.5)
[2019-04-27 15:11] VITALS: BP 118/71
--- NOTE | 2019-04-27 16:20 | NUR ---
PT REMAINS OOB RESTING IN RECLINER;RESPIRATIONS EVEN AND UNLABORED ON RA;PT DENIES ANY CURRENT PAIN OR NEEDS;IV FLUIDS INFUSING WITH EASE PER ORDER;PT DENIES ANY CURRENT PAIN OR DISCOMFORTS;ENCOURAGED TO CALL FOR ASSISTANCE IF NEEDED;FALL PRECAUTIONS IN PLACE WITH CALL LIGHT IN REACH;WILL CONTINUE TO MONITOR
--- NOTE | 2019-04-27 19:45 | NUR ---
PT AWAKE RESTING IN RECLINER. ALERT AND ORIENTED X3 BUT CAN BE FORGETFUL AT TIMES. RESP EVEN AND UNLABORED. NO DISTRESS NOTED. LUNGS CLEAR BILAT WITH DIMINISHED BREATH SOUNDS. ABD SOFT AND NONDISTENDED WITH BOWEL SOUNDS PATENT. NO LOWER EXT EDEMA NOTED. PEDAL PULSES PALPATED BILAT. JENNIE AREA IS RED AND EXCORIATED. BRUISES BILAT ARMS. HEPLOCK PATENT IN LEFT A.C. AND IV SITE PATENT IN LEFT FOREARM WITH NSS AT 100CC/HR. PT REQUESTING TO STAY IN CHAIR A LITTLE LONGER. PT INSTRUCTED TO RING WHEN SHE IS READY TO GET IN BED. CALL SHETH WITHIN REACH AND FREQUENT ROUNDS MADE ON PT. CALL SHETH WITHIN REACH.
[2019-04-27 20:10] VITALS: BP 107/66
--- NOTE | 2019-04-27 20:10 | NUR ---
PT RESTING IN CHAIR. ASKED PT IF SHE WOULD LIKE TO GET IN TO BED BUT PT STATES SHE IS WATCHING T.V. AND WOULD LIKE TO STAY IN CHAIR LONGER. VSS. FREQUENT ROUNDS MADE. CALL SHETH WITHIN REACH.
--- NOTE | 2019-04-27 20:30 | NUR ---
PT HEARD YELLING FROM ROOM. PT FOUND LAYING ON THE FLOOR ON HER LEFT SIDE NEXT TO THE BED. PT STATES SHE DID NOT FALL BUT SLID OFF OF HER CHAIR. PT SKIN ASSESSED AND NO REDNESS NOTED . PT DENIES HITTING HER HEAD, SHOULDERS BACK OR HIPS. PT ASSISTED BACK IN TO BED AND VITALS OBTAINED. VSS. AGAIN PT STATES SHE DID NOT FALL BUT SLID OUT OF CHAIR. BED ALARM IS ON FOR PTS SAFETY. PT STATES SHE KNOWS SHE SHOULD HAVE RANG HER CALL SHETH INSTRUCTED BUT DID NOT. YELLOW BRACELET IS ON PT. WILL CONTINUE TO CLOSELY MONITOR AND WILL INFORM M.D. CALL SHETH WITHIN REACH.
[2019-04-27 20:35] VITALS: BP 113/67
--- NOTE | 2019-04-27 20:45 | NUR ---
DR MOORE CALLED AND INFORMED PT WAS FOUND ON FLOOR NEXT TO BED BUT PT DENIES FALLING AND STATES SHE SLID OUT OF CHAIR. DR MOORE INFORMED VSS AND NO APPARENT INJURIES NOTED. NO NEW ORDERS RECEIVED.
--- NOTE | 2019-04-27 22:30 | NUR ---
PT RESTING IN BED. ASSESSMENT UNCHANGED. RESP EVEN AND UNLABORED. DENIES ANY DISCOMFORT. IV SITE PATENT. BED ALARM IS ON FOR PTS SAFETY. FREQUENT ROUNDS MADE. CALL SHETH WITHIN REACH. INSTRUCTOR TRAFFIC SAFETY DHIRAJ CHILDRESS AWARE OF FALL EARLIER IN SHIFT.
[2019-04-28 04:08] VITALS: BP 119/79
[2019-04-28 04:10] VITALS: BP 138/73
--- NOTE | 2019-04-28 04:27 | NUR ---
PT VOIDED CLEAR YELLOW URINE ON BED VERMA. JENNIE CARE GIVEN. JENNIE AREA AND COCCYX IS RED AND EXCORIATED. IV SITE PATENT. TURNED AND REPOSITIONED FOR COMFORT. PT CONFUSED ON TIME. REORIENTED. DENIES ANY DISCOMFORT. O2 N/C ON AT 2L. BED ALARM IS ON FOR PTS SAFETY. FREQUENT ROUNDS MADE. CALL SHETH WITHIN REACH.
[2019-04-28 05:36] LABS: CREATININE 1.2 mg/dL (0.5-1.0)
[2019-04-28 05:37] LABS: PROTHROMBIN TIME 20.7 SECONDS (9.0-12.5)
[2019-04-28 08:00] VITALS: BP 119/81
--- NOTE | 2019-04-28 09:00 | NUR ---
PT SEEN AWAKE, ALERT, ORIENTED X 2-3. PT APPEARS FRAIL IN ELDERLY FEMALE. SHE FEEDS HERSELF BREAKFAST, MINIMAL INTAKE. PT DENIES PAIN OR SHORTNESS OF BREATH. PT CONFUSED AT TIMES DURING INITIAL ASSESSMENT.
--- NOTE | 2019-04-28 13:00 | NUR ---
PT CONTINUES BEFORE, CONFUSED FREQUENTLY. ARRIVES TO SAY THAT THIS IS NOT USUAL FOR HER, THAT SHE IS NORMALLY NOT CONFUSED. DR MOORE AWARE, ORDERS TESTING. PT CALLS APPROPRIATELY FOR BSC, ASSISTED BY CNAs. LFA IV SITE DISCONTINUED PER INFILTRATE.
[2019-04-28 13:04] LABS: URINE BILIRUBIN - DIPSTICK NEGATIVE (NEGATIVE); URINE BLOOD DIPSTICK NEGATIVE (NEGATIVE); URINE COLOR YELLOW; URINE GLUCOSE - DIPSTICK NEGATIVE (NEGATIVE); URINE KETONE NEGATIVE (NEGATIVE); URINE LEUK ESTERASE NEGATIVE (NEGATIVE); URINE NITRITE - DIPSTICK NEGATIVE (Negative); URINE PH 5.5 (4.5-8.0); URINE PROTEIN - DIPSTICK TRACE mg/dL (NEG-TRACE); URINE SPECIFIC GRAVITY 1.025; URINE UROBILINOGEN - DIPSTICK 0.2 E.U./dL (0.2)
[2019-04-28 15:42] VITALS: BP 137/64
--- NOTE | 2019-04-28 17:44 | NUR ---
PT HAS BEEN TO RADIOLOGY AND BACK. AND SON UPDATED ON FINDINGS THEY WERE KNOWN. PT CONTINUES WITH CONFUSION, NOT WORSENING. ANTIBIOTICS BEGUN ORDERED FOR QUESTIONABLE DEVELOPING INFILTRATES.
[2019-04-28 19:35] VITALS: BP 115/81
--- NOTE | 2019-04-28 19:45 | NUR ---
PT RESTING IN BED AWAKE. PT IS ALERT AND ORIENTED X3. SHIFT ASSESSMENT COMPLETED AT THIS TIME. IV PATENT X1. ASSISTED PT UP TO BSC. MAX ASSIST. CALL LIGHT IN REACH. BED ALARM ON FOR PT SAFETY. WILL CONTINUE TO TR
--- NOTE | 2019-04-29 03:58 | NUR ---
PT RESTING IN BED WITH EYES CLOSED. RESP ARE EVEN AND UNLABORED. NO DISTRESS NOTED. CALL LIGHT IN REACH. WILL CONTINUE TO MONITOR.
[2019-04-29 04:43] VITALS: BP 132/84
[2019-04-29 05:28] LABS: PROTHROMBIN TIME 26.8 SECONDS (9.0-12.5)
[2019-04-29 05:29] LABS: INTERNATIONAL NORMALIZED RATIO 2.7 RATIO (0.7-1.3)
[2019-04-29 08:00] VITALS: BP 142/68
--- NOTE | 2019-04-29 08:09 | NUR ---
PT IS AWAKE, ALERT, APPROPRIATE THIS MORNING. ALTHOUGH SLOW TO ANSWER, SHE DOES NOT APPEAR CONFUSED SHE WAS YESTERDAY. RIGHT HAND ECCHYMOTIC WHERE IV IS PLACED, SOME SWELLING, BUT DOES NOT APPEAR INFILTRATED.
[2019-04-29 08:46] LABS: HEMATOCRIT 30.2 % (37.0-47.0); HEMOGLOBIN 9.2 g/dl (12.0-16.0); MEAN CELL VOLUME 95.3 fL CALC (80.0-100.0); MEAN CORPUSCULAR HGB CONC 30.5 g/dL CAL (32.0-36.0); RED BLOOD COUNT 3.17 mill/uL (4.20-5.60); RED CELL DISTRI WIDTH 14.1 % (11.5-15.5)
[2019-04-29 08:54] LABS: BILIRUBIN, TOTAL 0.5 mg/dL (0.0-1.4); CREATININE 1.2 mg/dL (0.5-1.0); POTASSIUM 4.8 mmol/l (3.5-5.1); TOTAL PROTEIN 5.3 g/dL (6.3-8.2)
[2019-04-29 08:55] LABS: ALBUMIN 2.6 g/dL (3.2-5.0)
[2019-04-29 12:18] VITALS: BP 142/68
[2019-04-29] MEDS ORDERED: ZPAK PO (12:22)
--- NOTE | 2019-04-29 13:41 | NUR ---
PT HAS BEEN DISCHARGED TO HOME BY DR MOORE. PT AND FAMILY VERBALIZE UNDERSTANDING OF DC INSTRUCTIONS, PT TAKEN TO LOBBY BY WHEELCHAIR.
== END 2019-04-29 13:38 | disposition home or self-care (01) | DRG 871 ==
LOC: ED 11:15 → ED-I 13:20 → ED 13:42 → ED-I 13:43 → MS2 13:43
PROVIDERS: Family Medicine; Nurse Practitioner Family; ADMIT Internal Medicine; ATTEND Internal Medicine
DX: A41.9 Sepsis, unspecified organism (principal); G93.41 Metabolic encephalopathy; J18.9 Pneumonia, unspecified organism; E87.1 Hypo-osmolality and hyponatremia; N18.4 Chronic kidney disease, stage 4 (severe); I48.20 Chronic atrial fibrillation, unspecified; R65.20 Severe sepsis without septic shock; I12.9 Hypertensive chronic kidney disease with stage 1 through stage 4 chronic kidney disease, or unspecified chronic kidney disease; G20 Parkinson's disease; E78.5 Hyperlipidemia, unspecified; R79.1 Abnormal coagulation profile; T45.515A Adverse effect of anticoagulants, initial encounter; Z95.0 Presence of cardiac pacemaker; Z86.79 Personal history of other diseases of the circulatory system; Z79.01 Long term (current) use of anticoagulants
CPT/HCPCS: G0378; J1956

== ENCOUNTER 2019-05-01 16:00 | Inpatient (IN) | payer MEDICARE ==
[~2019-05-01] VITALS: Ht 157.5 cm; Wt 55.0 kg
[~2019-05-01 16:00] MED LIST changes: +BAYER ASPIRIN E81 MG PO; +METOPROL TAR25 M1 PO; +ZPAK PO
--- NOTE | 2019-05-01 16:08 | NUR ---
PT TO ROOM PER EMS, WITH A WET COUGH NOTED. NON REBREATHER WAS ON WITH SATS OF 91-92%. PT ALERT/ORIENTEDX3
--- NOTE | 2019-05-01 16:15 | NUR ---
PT BASELINE O2 SAT 87% ON RA. APPLIED O2@4LPM VIA NC, O2 SATS INCREASED TO 94%. PT ALERT , PALE, NO DISTRESS. RESPONDS APPROPRIATELY. WHEN ASKED PER EDP PT STATES "I WANT TO BREATHE FOR MYSELF IF I CAN BUT I WANT YOU TO BREATH FOR ME IF I MIGHT BE ALRIGHT".
--- NOTE | 2019-05-01 16:20 | NUR ---
COVID-19 SWAB OBTAINED OUT OF LEFT NOSTRIL USING CDC REQUIREMENTS AND PRECAUTION
[2019-05-01 16:30] LABS: HEMATOCRIT 27.8 % (37.0-47.0); HEMOGLOBIN 8.9 g/dl (12.0-16.0); IMMATURE GRANULOCYTES 0.3 % (0.0-5.0); MEAN CELL VOLUME 91.7 fL CALC (80.0-100.0); MEAN CORPUSCULAR HGB 29.4 pG CALC (26.0-32.0); NEUT# 5.37 thou/uL (2.00-7.15); RED BLOOD COUNT 3.03 mill/uL (4.20-5.60); RED CELL DISTRI WIDTH 14.3 % (11.5-15.5)
[2019-05-01 16:43] LABS: ALBUMIN 2.8 g/dL (3.2-5.0); ANION GAP 12 (6-22 (CALC)); BUN 16 mg/dL (8-23); BUN/CREATININE RATIO 13 (12-20 (CALC)); CARBON DIOXIDE 18 mmol/l (22-30); CHLORIDE 103 mmol/l (95-108); CREATININE 1.2 mg/dL (0.5-1.0); GFR 43 ML/MIN (>=60 (CALC)); GFR FOR AFR.AMER. 52 ML/MIN (>=60 (CALC)); POTASSIUM 4.8 mmol/l (3.5-5.1); SODIUM 128 mmol/l (137-146); TOTAL PROTEIN 5.7 g/dL (6.3-8.2)
[2019-05-01 16:50] LABS: ALKALINE PHOSPHATASE 110 u/l (38-126); BILIRUBIN, TOTAL 0.8 mg/dL (0.0-1.4); SGOT/AST 70 u/l (9-36)
[2019-05-01 16:55] LABS: MYOGLOBIN 203 ng/mL (0 - 62)
[2019-05-01 16:59] LABS: INTERNATIONAL NORMALIZED RATIO 5.2 RATIO (0.7-1.3); PROTHROMBIN TIME 50.2 SECONDS (9.0-12.5)
--- NOTE | 2019-05-01 17:00 | NUR ---
PITTING EDEMA NOTED ON LEFT SIDE OF BODY. PT HAS A SKIN TEAR ON THE LEFT ELBOW THAT IS LEAKING CLEAR FLUID AND SKIN IS BRUISED. LEFT ANKLE IS ALSO SWOLLEN AND BRUISED. RHONCHI NOTED ON RIGHT AND LEFT LUNGS. PT HAS A PRODUCTIVE COUGH. PT UNABLE TO SAY WHEN SWELLING STARTED. PT AOX4. WILL CONTINUE TO MONTIOR.
[2019-05-01 18:03] LABS: URINE BILIRUBIN - DIPSTICK NEGATIVE (NEGATIVE); URINE BLOOD DIPSTICK NEGATIVE (NEGATIVE); URINE COLOR YELLOW; URINE GLUCOSE - DIPSTICK NEGATIVE (NEGATIVE); URINE KETONE NEGATIVE (NEGATIVE); URINE LEUK ESTERASE NEGATIVE (NEGATIVE); URINE NITRITE - DIPSTICK NEGATIVE (Negative); URINE PROTEIN - DIPSTICK NEGATIVE (NEG-TRACE); URINE SPECIFIC GRAVITY 1.015; URINE UROBILINOGEN - DIPSTICK 0.2 E.U./dL (0.2)
--- NOTE | 2019-05-01 18:06 | NUR ---
PT SITTING UP IN BED, DENIES ANY NEEDS AT THIS TIME. CALL LIGHT WITHIN REACH
--- NOTE | 2019-05-01 18:37 | NUR ---
ATTEMPTED TO CALL REPORT, I WAS INFORMED THAT INCOMING NURSE WILL CALL BACK TO GET REPORT.
--- NOTE | 2019-05-01 19:32 | NUR ---
ATTEMPTED TO CALL REPORT AND NURSE STATED SHE WAS BUSY WITH SUPERVISIOR AND WOULD CALL BACK WHEN AVAILIABLE
--- NOTE | 2019-05-01 19:50 | NUR ---
PT TRASPORTED STABLE AND IN NO DISTRESS TO MED SURG VIA STRETCHER USING APPROPRIATE PRECAUTION PPE. MASK WAS PLACED ON PT. CARE ASSUMED TO FRAYA. Admission Note Report Given to: Transported by: Wheelchair X Stretcher Transported with: X Nurse Transporter X Patent IV X O2 X Furniture Mover Location: ICU X MS2
[2019-05-01 20:07] VITALS: BP 119/52
--- NOTE | 2019-05-01 20:10 | NUR ---
PT ARRIVED TO MED SURG UNIT VIA STRETCHER ACCOMPANIED BY ED NURSE. PT APPEARS TO BE IN STABLE CONDITION. SHE WAS UNABLE TO SELF TRANSFER AND WAS SLID FROM STRETCHER TO BED. LEE CATHETER IN PLACE APPEARS TO BE DRAINING TO GRAVITY CLEAR YELLOW URINE. PT LOCX4 AT THIS TIME. NO S/O DISTRESS AND REPORTS FEELING "MUCH BETTER." PT ORIENTED TO ROOM, CALL SYSTEM AND V/S ASSESSED AT THIS TIME.
--- NOTE | 2019-05-01 22:07 | NUR ---
PT MEDICATED ORDERS PROVIDE AND ASSESSMENT COMPLETED AT THIS TIME. ANTIBIOTIC THERAPY HAVE BEEN ADMINISTERED AND POC DISCUSSED W/PT. SHE IS SLIGHTLY BOIS FORTE, I ASSISTED PT TO USE THE HOUSE PHONE TO CALL HER . PT DENIED SNACK OR ADDITIONAL PO FLUIDS, WATER AT BEDSIDE. PT ORIENTED TO CALL LIGHT REINFORCED AND ENCOURAGED HER TO CALL NEEDS ARISE. PT DEMONSTRATED ITS USE. SHE WAS ABLE TO ANSWER ALL ADMISSION QUESTIONS W/APPARENT CLARITY.
[2019-05-01 23:45] VITALS: BP 108/60
--- NOTE | 2019-05-02 01:42 | NUR ---
PT SLEEPING, NO S/O DISTRESS NOTED AT THIS TIME.
[2019-05-02 03:05] VITALS: BP 123/76
--- NOTE | 2019-05-02 04:15 | NUR ---
PT AWOKE TO MY ENTERING ROOM. PT LOC. DENIES ANY NEEDS. BLOOD DRAWN FOR LAB. DAILY WEIGHT OBTAINED. CALL LIGHT AT SIDE.
[2019-05-02 06:19] LABS: CREATININE 1.3 mg/dL (0.5-1.0); POTASSIUM 4.2 mmol/l (3.5-5.1)
--- NOTE | 2019-05-02 07:00 | NUR ---
REPORT RECEIVED FROM MONROE FOWLER. PT SITTING UP IN BED SEMI FOWLERS; ALERT AND ORIENTED. DENIES PAIN. RESPIRATIONS EVEN AND UNLABORED ON OXYGEN 5L VIA NC. TELE ON. EMS SITE FOUND DISLODGED; LAC IV SITE APPEARS HEALTHY AND FLUSHES. LEE DRAINING CLEAR YELLOW URINE IN ADEQUATE AMOUNTS. PLAN OF CARE REVIEWED. PT ENCOURAGED TO VERBALIZE CONCERNS. STATES UNDERSTANDING. SAFETY MEASURES IN PLACE. CALL LIGHT WITHIN REACH. PT REMAINS ON AIRBORNE ISOLATION PRECAUTIONS.
--- NOTE | 2019-05-02 08:45 | NUR ---
DR. PRICE AT BEDSIDE FOR EVAL. OXYGEN SATURATION DIFFICULTY TO OBTAIN; 100% SPO2 ON 5L; TITRATED OXYGEN DOWN TO 3L. PT/INR DRAWN AND SENT TO LAB. AZACTAM INFUSING AT THIS TIME. NO REQUESTS OR CONCERNS FROM PT.
[2019-05-02 09:34] VITALS: BP 131/72
[2019-05-02 10:50] LABS: INTERNATIONAL NORMALIZED RATIO 4.2 RATIO (0.7-1.3); PROTHROMBIN TIME 41.2 SECONDS (9.0-12.5)
[2019-05-02 11:52] VITALS: BP 137/72
[2019-05-02 15:35] VITALS: BP 142/104
--- NOTE | 2019-05-02 15:55 | NUR ---
REPOSITIONED UP INTO CHAIR. LINENS CHANGED AND PT BRUSHED TEETH. SHE SPOKE TO HER ON THE TELEPHONE. REMAINS ALERT AND ORIENTED. CONTINUES TO DENY PAIN. VSS. RESPIRATIONS EVEN AND UNLABORED ON OXYGEN 3L. 1850 ML OF CLEAR YELLOW URINE EMPTIED FROM LEE. NO OTHER REQUESTS OR CONCERNS AT THIS TIME. CALL LIGHT WITHIN REACH.
[2019-05-02 19:35] VITALS: BP 137/73
--- NOTE | 2019-05-02 21:00 | NUR ---
PATIENT SITTING UP IN THE RECLINER AT THIS TIME-PATIENT IS PALE, AWAKE ALERT AND ORIENTEDX2. PATIENT IS SOB WITH EXHERSION. WEAK COUGH NOTED. O2 VIA NASAL CANNULA IN PLACE AT 3LPM. TELE MONITOR ELECTRODES WERE CHANGED. LEE IS PATENT AND DRAING QS CLEAR YELLOW URINE. PATIENT WITH SWELLING TO BLE-PATIENT STATES THAT THEY ARE MUCH BETTER. AZACTAM HUNG VIA LEFT AC SITE ORDERED. 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 SAFETY PRECAUTIONS REINFORCED. CALL LIGHT IN REACH. WILL CONT TO MONITOR.
--- NOTE | 2019-05-02 23:00 | NUR ---
PATIENT RESTING IN BED-IV SITE TO LEFT AC IS LEAKING AND D/C'ED. NEW IV SITE STARTED TO LEFT WRIST-#24 GAUGE WITH GOOD BLOOD RETURN. NEW TELE MONITOR AND WIRES APPLIED PATIENT REMAINS ON ISOLATION PRECAUTIONS. HOB ELEVATED FOR COMFORT.O2 VIA NASAL CANNULA IN PLACE AT 3LPM. ENCOURAGED PATIENT TO CDB-POOR EFFORT. SAFETY PRECAUTIONS REINFORCED. CALL LIGHT IN REACH. WILL CONT TO MONITOR.
[2019-05-02 23:42] VITALS: BP 125/79
--- NOTE | 2019-05-03 04:00 | NUR ---
PATIENT APPEARS SLEEPING WITH HOB ELEVATED AND O2 VIA NASAL CANNULA IN PLACE. RESPS ARE EVEN AND UNLABORED. TELE MONITOR IN PLACE. LEE PATENT AND DRAINING YELLOW URINE. CALL LIGHT IN REACH, WILL CONT TO MONITOR.
[2019-05-03 04:40] VITALS: BP 111/58
[2019-05-03 05:44] LABS: HEMOGLOBIN 10.6 g/dl (12.0-16.0); MEAN CELL VOLUME 95.6 fL CALC (80.0-100.0); MEAN CORPUSCULAR HGB CONC 30.3 g/dL CAL (32.0-36.0); RED BLOOD COUNT 3.66 mill/uL (4.20-5.60); RED CELL DISTRI WIDTH 14.3 % (11.5-15.5)
--- NOTE | 2019-05-03 07:10 | NUR ---
REPORT RECEIVED FROM MONROE OTERO. PT SITTING UP IN BED SPEAKING WITH ON THE PHONE; ALERT AND ORIENTED. DENIES PAIN. RESPIRATIONS EVEN AND UNLABORED ON ROOM AIR. IV SITE APPEARS HEALTHY AND FLUSHES. LEE DRAINING CLEAR YELLOW URINE TO GRAVITY; SECURED TO RIGHT THIGH. TELE ON; ICT SALES ASSISTANT NOTIFIED NURSE OF DIFFICULTY WITH READING RHYTHM DUE TO ARTIFACT; READJUSTED MONITOR. SAFETY MEASURES IN PLACE. CALL LIGHT WITHIN REACH.
[2019-05-03 08:30] VITALS: BP 116/74
--- NOTE | 2019-05-03 10:30 | NUR ---
PENDING LABS OBTAINED AND SENT TO LAB.
[2019-05-03 11:22] LABS: PROTHROMBIN TIME 29.7 SECONDS (9.0-12.5)
[2019-05-03 11:24] LABS: ALBUMIN 2.9 g/dL (3.2-5.0); BILIRUBIN, TOTAL 0.6 mg/dL (0.0-1.4); CREATININE 1.2 mg/dL (0.5-1.0); MAGNESIUM 1.4 mg/dL (1.6-2.3); POTASSIUM 3.9 mmol/l (3.5-5.1); TOTAL PROTEIN 5.5 g/dL (6.3-8.2)
[2019-05-03 11:25] VITALS: BP 123/69
--- NOTE | 2019-05-03 14:51 | NUR ---
PT SITTING UP IN BED WATCHING TV AND EATING A SNACK. MAGNESIUM INFUSING AT THIS TIME; PT TOLERATING WELL. CONTINUES TO DENY PAIN. RESPIRATIONS EVEN AND UNLABORED ON OXYGEN. TELE ON. LARGE URINE OUTPUT. CALL LIGHT WITHIN REACH.
[2019-05-03 15:03] VITALS: BP 110/68
[2019-05-03 19:33] VITALS: BP 98/64
--- NOTE | 2019-05-03 19:45 | NUR ---
PT RESTING IN BED,NO SIGNS OF DISTRESS NOTED, RESP EVEN AND UNLABORED. PT ALERT AND ORIENTED X3, DISCUSSED POC, PT VOICES NO NEEDS OR COMPLAINTS AT THIS TIME, LEE DRAINING TO GRAVITY, ASSESSMENT COMPLETED, CALL LIGHT IN REACH,CONTINUE TO MONITOR.
[2019-05-04] VITALS (7 sets, daily range): BP systolic 98–119; BP diastolic 50–75
--- NOTE | 2019-05-04 00:08 | NUR ---
PT RESTING IN BED WATCHING TV, NO SIGNS OF DISTRESS NOTED, RESP EVEN AND UNLABORED. IV ANTIBIOTIC INFUSION INITIATED, VITALS OBTAINED, CALL LIGHT IN REACH,CONTINUE TO MONITOR.
--- NOTE | 2019-05-04 04:45 | NUR ---
PT RESTING IN BED, DISCUSSED LAB DRAW, PT AGREED. VITALS OBTAINED, LABS DRAWN, PT TOLERATED WELL. CALL LIGHT IN REACH,CONTINUE TO MONITOR.
[2019-05-04 05:30] LABS: HEMATOCRIT 30.9 % (37.0-47.0); HEMOGLOBIN 9.8 g/dl (12.0-16.0); MEAN CELL VOLUME 90.4 fL CALC (80.0-100.0); MEAN CORPUSCULAR HGB 28.7 pG CALC (26.0-32.0); MEAN CORPUSCULAR HGB CONC 31.7 g/dL CAL (32.0-36.0); RED BLOOD COUNT 3.42 mill/uL (4.20-5.60); RED CELL DISTRI WIDTH 14.3 % (11.5-15.5)
[2019-05-04 05:41] LABS: CREATININE 1.1 mg/dL (0.5-1.0); MAGNESIUM 2.3 mg/dL (1.6-2.3); POTASSIUM 3.9 mmol/l (3.5-5.1)
[2019-05-04 05:53] LABS: INTERNATIONAL NORMALIZED RATIO 2.8 RATIO (0.7-1.3); PROTHROMBIN TIME 28.1 SECONDS (9.0-12.5)
--- NOTE | 2019-05-04 07:10 | NUR ---
REPORT RECEIVED FROM MONTY ORDOÑEZ. PT RESTING IN BED SEMI FOWLERS; ALERT AND ORIENTED. DENIES PAIN. RESPIRATIONS EVEN AND UNLABORED ON 2L VIA NC. COURSE LUNGS SOUNDS ANTERIORLY. IV SITE APPEARS HEALTHY AND FLUSHES. GENERALIZED EDEMA TO EXTREMITIES; RIGHT LEG LARGER THAN LEFT LEG. LEE DRAINING CLEAR YELLOW URINE IN ADEQUATE AMOUNTS. HEELS OFF LOADED FOR MILD REDNESS. HR IRREGULAR. CLINICAL NUTRITION MANAGER ON WITH FREQUENT RHYTHM CHANGES FROM PACED TO AFIB. PT REMAINS ON AIRBORNE ISOLATION PENDING COVID TEST RESULTS. SAFETY MEASURES IN PLACE. CALL LIGHT WITHIN REACH.
--- NOTE | 2019-05-04 11:25 | NUR ---
DR. PRICE AT BEDSIDE. CEFEPIME INFUSING AT THIS TIME.
--- NOTE | 2019-05-04 11:54 | NUR ---
PT note Refer to evaluation for detailed report Ms Weeks has seen me as an outpatient and was doing very well until her recent illness. PROM is limited to 75% due to OA of the bilateral shoulders, bilateral knees AROM is 75% of normal due to weakness bed mobility is max assist transfers are max assist gait - unable Am Pac is 6 indicating she would do well in and ECF with a good rehab program to address her immobility, improve her gait, decrease any aspiration risk if any and decrease her fall risk while improving her independence.
--- NOTE | 2019-05-04 12:28 | NUR ---
NEGATIVE COVID TEST RESULTS CALLED TO NURSE BY RUTH MURRAY.
--- NOTE | 2019-05-04 14:39 | NUR ---
PT MOVED TO ROOM 280 VIA BED AND NOW ON STANDARD PRECAUTIONS. UPDATED ON ROOM CHANGE.
--- NOTE | 2019-05-04 16:40 | NUR ---
NOTIFIED DR CONSTANTINO OF 6 BEAT RUN OF VTACH AND VITAL SIGNS. NOTIFED ALBERT OF DECREASED O2 SAT. ORDERS RECEIVED FOR ABG
--- NOTE | 2019-05-04 16:47 | NUR ---
RT AT BEDSIDE FOR ABG AT THIS TIME.
--- NOTE | 2019-05-04 17:02 | NUR ---
NOTIFIED DR PRICE OF [facility] RESULTS
--- NOTE | 2019-05-04 17:35 | NUR ---
RADIOLOGY AT BEDSIDE FOR PORTABLE CXR
--- NOTE | 2019-05-05 00:08 | NUR ---
PT MEDICATED ORDERS PROVIDE IV ANTIBIOTIC THERAPY. V/S ASSESSED AND PT PROVIDED JENNIE/LEE CATHETER CARE. PT APPEARS VERY WEAK. RESPONDS APPROPRIATELY, BUT IS VERY WEAK IN HER SPEACH AND PHYSICAL STRENGTH.
[2019-05-05 00:10] VITALS: BP 102/66
--- NOTE | 2019-05-05 01:49 | NUR ---
PT APPEARS TO BE SLEEPING. NO S/O DISTRESS NOTED.
--- NOTE | 2019-05-05 03:15 | NUR ---
PT HEARD COUGHING, ASSISTED HER TO REPOSITION IN BED FOR COMFORT. DENIES ANY NEEDS AT THIS TIME. PT IS VERY WEAK.
[2019-05-05 03:45] VITALS: BP 118/59
[2019-05-05 05:55] LABS: CREATININE 1.2 mg/dL (0.5-1.0); MAGNESIUM 2.1 mg/dL (1.6-2.3)
[2019-05-05 06:03] LABS: INTERNATIONAL NORMALIZED RATIO 2.1 RATIO (0.7-1.3); PROTHROMBIN TIME 21.6 SECONDS (9.0-12.5)
--- NOTE | 2019-05-05 07:40 | NUR ---
PT SITTING UP IN BED, BREATHING EVEN AND UNLOBORED. O2 ON VIA NASAL CANNULAT AT 4 LITERS. IV TO LEFT WRIST SALINE LOCKED. GENERALIZED ECHYMOSIS TO EXTREMETIES. SPEACH CLEAR, NO C/O AT THIS TIME. YAMILKA SOUNDS POSITIVE. CALL LIGHT IN REACH.
[2019-05-05 10:40] VITALS: BP 112/66
--- NOTE | 2019-05-05 11:35 | NUR ---
NEW IV, #20 TO RIGHT A/C X 1 ATTEMPT. PT TOLERATED WELL. FORMER IV D/C'D.
[2019-05-05 16:00] VITALS: BP 104/65
--- NOTE | 2019-05-05 19:20 | NUR ---
CHANGE OF SHIFT REPORT REEIVED FROM MONROE MEHTA. PT IN SUPINE POSITION. PT IS ABLE TO MAKE NEEDS KNOWN. PT DENIES PAIN. PT NOTED TO HAVE RHOCHI ON BILATERAL UPPER LOBES. COUGH WEAK AND UNPRODUCTIVE. PT IS ALERT AND ORIENTED X 3 ON OXYGEN AT 3LPM. ARMATURE WINDER HELPER REPAIR WILL CONTINUE TO MONITOR
[2019-05-05 20:00] VITALS: BP 96/60
--- NOTE | 2019-05-05 22:00 | NUR ---
PATIENT REPOSITIONED ON RIGHT LATERAL SIDE. HOB AT 30 DEGREES. BP AT 96/60; RESP AT 20; TEMP AT 89.9 (TEMPORAL). O2 SAT AT 92%. 9PM MEDS ADMINISTERED AT THIS TIME. PT DENIES ANY CONCERNS. ACTIVE COUGHING ENCOURAGED. NEWS VIDEOTAPE EDITOR WILL CONTINUE TO MONITOR
[2019-05-06] VITALS (24 sets, daily range): BP systolic 83–129; BP diastolic 55–75
--- NOTE | 2019-05-06 00:15 | NUR ---
PT NOTED TO HAVE O2 SATURATION IN THE LOW 60'S. PT ON OXYGEN AT 3LPM VIA NC. RESPIRATORY THERAPIST CALLED. PT HOB RAISED TO HIGH BECK. PT WITH WEAK INEEFECTIVE COUGH. BP WNL. RESP AT 20. TEMP AT 99.0(TEMPORAL). PT IS ALERT AND ORIENTED X 3. PT DENIES SOB. PT RESPIRATION SHALLOW. RESPIRATORY THERAPIST KOFI ABG'S. CL- PO2 AT 42 AND PCO2 55.8. CALLED IN TO DR WOOD. ORDERS RECEIVED TO TRANSFER PT TO ICU STAT; BIPAP; ALBUTEROL SULFATE PRN SOB AND ROUTINE MUCINEX. PT TRANSFERRED TO ICU ROOM 5. PT NOTED TO HAVE NEW ONSET JVD. REPORT GIVEN TO JD MAYORGA. REPORT GIVEN TO RT. YOSHI MEJIA NOTIFIED OF CHANGE OF CONDITION AND ALSO NOTIFIED THAT PT MOVED TO ICU. ROBERTO ENCOURAGED TO CALL BY PHONE ANYTIME. PHYSICIAN ORDER SHEET FAXED TO PHARMACY AND HANDED OVER TO MONROE MAYORGA.
--- NOTE | 2019-05-06 01:00 | NUR ---
PATIENT ARRIVES VIA STRETCHER ON NC ACCOMPANIED BY 2 NURSES. PATIENT IS CALM NO LABORED BREATHING NOTICED, SHE WAS DESATING. RT PLACED ON BIPAP RIGHT AWAY ON FIO2 100%. PATIENT RESPONDS TO HER NAME ONLY, IS AWAKE, ALERT. PATIENT'S FINGERS ARE COLD, PULSE OX NOT ABLE TO READ AT TIMES, SATS 94%-100%. PATIENT LAYS ON HER LEFT SIDE. HEELS ELEVATED DUE TO NOTICED REDNESS ON HEELS. NURSING ASSESSMENT PERFORMED. RECEIVED REPORT FROM NURSE SCOT ELLISON TO PLACE ORDERS RECIEVED FROM DR STEELE. RFA 22 G IV INTACT, SALINE LOCKED. LOW GRADE TEMP 99.0 DEGREES F. HR RANGES FROM 95 BPM-105 BPM, AFIB WITH PACER SPIKES. BP WNL. BILAT JVD PRESENT.
--- NOTE | 2019-05-06 02:30 | NUR ---
NOTIFIED BY RT HE TURNED FIO2 TO 80%, PATIENT SATS 100%.
[2019-05-06 04:30] LABS: HEMATOCRIT 29.3 % (37.0-47.0); HEMOGLOBIN 9.1 g/dl (12.0-16.0); IMMATURE GRANULOCYTES 0.6 % (0.0-5.0); MEAN CORPUSCULAR HGB 28.3 pG CALC (26.0-32.0); MEAN CORPUSCULAR HGB CONC 31.1 g/dL CAL (32.0-36.0); NEUT# 6.89 thou/uL (2.00-7.15); RED BLOOD COUNT 3.22 mill/uL (4.20-5.60); RED CELL DISTRI WIDTH 14.1 % (11.5-15.5)
[2019-05-06 04:44] LABS: CREATININE 1.3 mg/dL (0.5-1.0); POTASSIUM 4.1 mmol/l (3.5-5.1)
--- NOTE | 2019-05-06 05:00 | NUR ---
RT IN ROOM FOR ABG'S. PATIENT CONTINUOUS TO BE ON BIPAP. NO ACUTE DISTRES SHOWN.
--- NOTE | 2019-05-06 05:35 | NUR ---
PORTABLE CXR TAKEN, PATIENT REPOSITIONED. ON BIPAP FIO2 NOW 60%. NO ACUTE DISTRESS SHOWN.
--- NOTE | 2019-05-06 06:21 | NUR ---
PATIENT'S CALLED AND I GAVE HIM UPDATE ON PATIENT. HE KNOWS HE CANNOT COME AT THE TIME. TOLD HIM HE CAN CALL ANYTIME FOR UPDATES.
--- NOTE | 2019-05-06 07:45 | NUR ---
PT RESTING IN BED WITH EYES CLOSED. ON BiPAP. NO DISTRESS NOTED. DENIES PAIN AT THIS TIME. WILL CONTINUE TO MONITOR
--- NOTE | 2019-05-06 07:47 | NUR ---
SPOKE WITH LUDMILA NORTON. UPDATED ON PATIENT STATUS
--- NOTE | 2019-05-06 07:54 | NUR ---
PT RECD ON BIPAP SETTINGS ON FLOW SHEET ALARMS ON AND AUDIBLE PT RESTING QUIETLY NO CHANGES AT THIS TIME
--- NOTE | 2019-05-06 09:03 | NUR ---
SPOKE TO MAXWELL (SON) TO UPDATE ON PATIENT CONDITION
--- NOTE | 2019-05-06 09:17 | NUR ---
SPOKE TO CIERRA AND UPDATED HIM ON PT CONDITION
--- NOTE | 2019-05-06 10:00 | NUR ---
AL RECIEVED FROM HOUSE SUP TO LET AND KIDS AT BEDSIDE FOR END OF LIFE DECISIONS DISCUSSION. WILL CONTINUE TO MONITOR
--- NOTE | 2019-05-06 10:10 | NUR ---
SPOKE TO DARIELA [id number] AND UPDATED ON PATIENT CONDITION
--- NOTE | 2019-05-06 10:15 | NUR ---
PT RESTING IN BED WITH EYES CLOSED. NO DISTRESS NOTED. AT BEDSIDE
--- NOTE | 2019-05-06 11:45 | NUR ---
DR. MALCOLM AT BEDSIDE TO ASSESS PT. FAMILY AT BEDSIDE TO DISCUSS PLAN OF CARE. WILL CONTINUE TO MONITOR
--- NOTE | 2019-05-06 12:15 | NUR ---
PT RESTING IN BED ON BiPAP. LOW O2 SATS AT TIMES. ADMITTING OFFICER VETO AND DR. MALCOLM AWARE. FAMILY AT BEDSIDE. WILL CONTINUE TO MONITOR
--- NOTE | 2019-05-06 14:39 | NUR ---
PT RESTING IN BED. NO DISTRESS NOTED. FAMILY AT BEDSIDE. TURNED. WILL CONTINUE TO MONITOR
--- NOTE | 2019-05-06 17:48 | NUR ---
PT REMAINS ON BIPAP NO CHANGES AT THIS TIME ALARMS ON AND AUDIBLE
--- NOTE | 2019-05-06 18:12 | NUR ---
PT RESTING IN BED. NO DISTRESS NOTED. DENIES PAIN. REPORT TO BE GIVEN TO NIGHT NURSE
--- NOTE | 2019-05-06 19:15 | NUR ---
awake. bipap cont. no acute resp distress. hall monitor shows a fib pvcs occas paced beats hr 114. #22 rfa saline lock. blair cath in place urine yellow. fall precautions cont. turned & repositioned. son (xander) @ bedside.
--- NOTE | 2019-05-06 22:00 | NUR ---
awake. no distress. bipap cont. son @ bedside.
[2019-05-07] VITALS (21 sets, daily range): BP systolic 82–119; BP diastolic 52–70
--- NOTE | 2019-05-07 00:01 | NUR ---
taking VERY short naps. son @ bedside. no distress.
--- NOTE | 2019-05-07 02:00 | NUR ---
bipap cont. no resp distress. ekg monitor shows a fib pvcs hr 78.
--- NOTE | 2019-05-07 03:30 | NUR ---
awake. son admitted "she's worried about me sleeping & i'm worried about her." explained to pt & son it was time to sleep. son to recliner. lights turned out.
--- NOTE | 2019-05-07 04:00 | NUR ---
eyes closed. no distress. radiation monitor shows a fib pvcs hr 64.
--- NOTE | 2019-05-07 06:00 | NUR ---
no acute change in condition this shift. son @ bedside.
--- NOTE | 2019-05-07 07:30 | NUR ---
PT RESTING IN BED. BiPAP ON. NO DISTRESS NOTED. DENIES PAIN. SON AT BEDSIDE. PER SON NOT TO FEED PT BREAKFAST DUE TO PATIENT O2 SATS DROPPING TO 70% WHEN OFF BiPAP FOR LESS THAN 45 SECONDS. WILL CONTINUE TO MONITOR
[2019-05-07 08:05] LABS: CREATININE 1.4 mg/dL (0.5-1.0); MAGNESIUM 2.1 mg/dL (1.6-2.3)
[2019-05-07 08:08] LABS: PROTHROMBIN TIME 19.8 SECONDS (9.0-12.5)
--- NOTE | 2019-05-07 08:30 | NUR ---
PT PLACED ON 4L NC TO TAKE MEDICATIONS AND EAT BREAKFAST. PT ON NC FRM [id number] O2 SATS DID NOT GO BELOW 88%. NO SOB OR DISTRESS NOTED. PT PLACED BACK ON BiPAP AFTER
--- NOTE | 2019-05-07 09:00 | NUR ---
DR. PRICE AT BEDSIDE TO ASSESS PT
--- NOTE | 2019-05-07 09:10 | NUR ---
PT PLACED ON 15L HIGH FLOW BY RT
--- NOTE | 2019-05-07 09:11 | NUR ---
pt off bipap to 8LPM hfnc will monitor closely to keep sats no less then 88%
--- NOTE | 2019-05-07 09:30 | NUR ---
PT ON HIGH FLOW. O2 SATS 40S-60S WHILE TRYING TO HAVE A BM. PT PLACED BACK ON BiPAP IMMEDIATELY. DR PRICE AND RT NOTIFIED. WILL CONTINUE TO MONITOR
--- NOTE | 2019-05-07 09:56 | NUR ---
pt off bipap at 0910 on 15 lpm hfnc sats to 88%
--- NOTE | 2019-05-07 10:00 | NUR ---
PT RESTING IN BED. DENIES PAIN. NO SOB OR DISTRESS NOTED. O2 SATS ABOVE 88% WILL CONTINUE TO MONITOR.
--- NOTE | 2019-05-07 12:00 | NUR ---
PT RESTING IN BED WITH EYES CLOSED. NO DISTRESS NOTED. DENIES SOB. DENIES PAIN. PT ON BiPAP. O2 SAT ABOBE 90S. WILL CONTINUE TO MONITOR
--- NOTE | 2019-05-07 14:00 | NUR ---
PT GIVEN BED BATH. SKIN SHEAR ON BUTTOCKS NOTED. PICTURE IN CHART. NO SOB OR RESP DISTRESS NOTED. DENIES PAIN. WILL CONTINUE TO MONITOR
--- NOTE | 2019-05-07 15:43 | NUR ---
PT REMAINS ON BIPAP SETTINGS ON FLOW SHEET ALARMS ON AND AUDIBLE PT COMFORTABLE ON CURRENT SETTINGS
--- NOTE | 2019-05-07 16:50 | NUR ---
PT RESTING IN BED. HUSBAMD AT BEDSIDE. PT TURNED. DENIES PAIN. NO DISTRESS NOTED. WILL CONTINUE TO MONITOR
--- NOTE | 2019-05-07 18:02 | NUR ---
PT PLACED ON 15L HIGH FLOW TO EAT DINNER PER PATIENT AND HUSBANDS REQUEST. O2 SATS REMAINED ABOVE 88%. PT ATE MINIMAL AMOUNT. NO DISTRESS NOTED. DENIES PAIN. WILL CONTINUE TO MONITOR
--- NOTE | 2019-05-07 19:30 | NUR ---
RESTING IN BED WITH AT BEDSIDE. PATIENT AWAKE, ALERT AND ORIENTED X3. ON BIPAP O2 SAT 92% PATIENT REQUESTS BIPAP OFF FOR A LITTLE WHILE-BIPAP ON STANDBY AND PLACED ON O2 15 L HFNC. WILL MONITOR CLOSELY. SHIFT ASSESSMENT COMPLETED. SALINE LOCK IN RFA, SITE BENIGN. BUYER INTERNSHIP SHOWS AFIB/PACED RHYTHM WITH OCC PVC'S. DISCUSSED PLAN OF CARE. DENIES NEEDS AT THIS TIME. CALL SHETH IN REACH.
--- NOTE | 2019-05-07 19:55 | NUR ---
O2 SAT DROPPED TO 79% PATIENT GIVEN SOME SIPS OF WATER. PLACED BACK ON BIPAP.
--- NOTE | 2019-05-07 20:05 | NUR ---
LEFT FOR THE NIGHT, PATIENT SON IN TO VISIT.
--- NOTE | 2019-05-07 21:30 | NUR ---
PATIENT TOOK 2100 MEDS WITH APPLESAUCE AND SIPS OF WATER.
--- NOTE | 2019-05-07 22:00 | NUR ---
TURNED AND REPOSITIONED ONTO LEFT SIDE. BARRIER OINT APPLIED TO COCCYX/ BUTTOCKS. VSS.
[2019-05-08] VITALS (10 sets, daily range): BP systolic 90–124; BP diastolic 51–72
--- NOTE | 2019-05-08 00:05 | NUR ---
RESTING WITH EYES CLOSED. ARSOUES TO NAME. VSS. TURNED AND REPOSTIONED.
--- NOTE | 2019-05-08 02:05 | NUR ---
SLEEPING UNLESS DISTURBED. AROUSES EASILY. REMAINS ON BIPAP O2 ST 95%
--- NOTE | 2019-05-08 04:00 | NUR ---
SLEEPING, AWAKENS TO NAME. RESP NON-LABORED, REMAINS ON BIPAP. TURNED AND REPOSITIONED. VSS.
[2019-05-08 05:20] LABS: HEMATOCRIT 29.5 % (37.0-47.0); HEMOGLOBIN 9.4 g/dl (12.0-16.0); MEAN CELL VOLUME 89.4 fL CALC (80.0-100.0); MEAN CORPUSCULAR HGB 28.5 pG CALC (26.0-32.0); MEAN CORPUSCULAR HGB CONC 31.9 g/dL CAL (32.0-36.0); RED BLOOD COUNT 3.3 mill/uL (4.20-5.60); RED CELL DISTRI WIDTH 14.2 % (11.5-15.5)
[2019-05-08 05:41] LABS: CREATININE 1.5 mg/dL (0.5-1.0); MAGNESIUM 2.1 mg/dL (1.6-2.3); POTASSIUM 3.7 mmol/l (3.5-5.1)
--- NOTE | 2019-05-08 06:00 | NUR ---
COMPLETE BED BATH GIVEN, LINENS CHANGED. TURNED AND REPOSITONED ONTO RIGHT SIDE. DUODERM APPLIED TO COCCYXGEAL AREA FOR SKIN BREAKDOWN. LEE DRAINED 300 ML CLEAR DARK YELLOW URINE. SALINE LOCK FLUSHED AND PATENT IN RH.
--- NOTE | 2019-05-08 07:30 | NUR ---
REPORT RECEIVED FROM MONROE GARAY. PT RESTING IN BED ON RIGHT SIDE WITH BIPAP ON AND EYES CLOSED; NO SIGNS OF DISTRESS. RESPIRATIONS SHALLOW EVEN AND UNLABORED AT 24 RPM. REPOSITIONED INTO HIGH FOWLERS; OXYGEN 4L APPLIED VIA NC; ORAL CARE GIVEN AND LIPS MOISTENED. PT DROWSY, BUT DOES RESPOND MINIMALLY VERBAL. WHEN ASKED PT SAYS SHE WANTS TO GO BACK ON THE BIPAP; SPO2 DECREASED TO 72% DURING TRANSITION. BIPAP SETTINGS 16/8 50% 02. NON PRODUCTIVE COUGH. JVD TO RIGHT NECK. IV SITE APPEARS HEALTHY AND FLUSHES. LEE DRAINING CLEAR YELLOW URINE. SAFETY MEASURES IN PLACE. NEEDS ANTICIPATED BY STAFF.
--- NOTE | 2019-05-08 08:19 | NUR ---
PT RECD ON BIPAP SETTINGS ON FLOW SHEET ALARMS ON AND AUDIBLE NURSE ATTEMPTED TO PLACE ON NC AT 4LPM PT SATS DROPPED TO MID 80"S PT PLACED BACK ON BIPAP NO CHANGES AT THIS TIME
--- NOTE | 2019-05-08 09:25 | NUR ---
DR. PRICE AND RT AT BEDSIDE FOR EVAL. BIPAP REMOVED AND PT PLACED ON 5L NC; SPO2 85%; WEAK RESPIRATORY EFFORT; ENCOURAGED TO TAKE DEEP BREATHS. PLACED ON FACE MASK WITH NO INCREASE IN SATURATIONS. NOW ON NON REBREATHER; SPO2 94-95%. DR. GARY DISCUSSING POC WITH .
--- NOTE | 2019-05-08 09:28 | NUR ---
PT OFF BIPAP PER DR ORDER ATTEMPTED 50% V-MASK SATS TO 84% PT PLACED ON NRB MASK SATS TO 94% AT 0920
--- NOTE | 2019-05-08 09:35 | NUR ---
AM MEDICATIONS HELD PER MD VERBAL ORDER. PT CURRENLTY VERY WEAK AND DROWSY; CURRENTLY WITH NO STRENGTH TO DRINK FROM STRAW.
--- NOTE | 2019-05-08 09:40 | NUR ---
D5NS FLUIDS INITIATED; INFUSING WITHOUT DIFFICULTY INTO 24G TO RH. HOSPICE OPTION DISCUSSED WITH FAMILY BY .
--- NOTE | 2019-05-08 11:45 | NUR ---
PT ATE 100% OF A MAGIC CUP WITH A FEW SIPS OF TEA. REPOSITIONED ONTO LEFT SIDE WITH PILLOWS. NON REBREATHER REMAINS IN PLACE. FAMILY AT BEDSIDE.
--- NOTE | 2019-05-08 14:59 | NUR ---
ROBITUSSIN GIVEN FOR PERSISTENT WEAK COUGH. PO MEDS TAKEN WITH PUDDING. SMALL SIPS OF WATER GIVEN WITH STRAW. REPOSITIONED WITH PILLOWS. SON AT BEDSIDE. IV SITE APPEARS HEALTHY.
--- NOTE | 2019-05-08 16:36 | NUR ---
FAMILY AT BEDSIDE. PT CONTINUES WITH PERSISTANT LOOSE NON PRODUCTIVE COUGH. SPO2 94-97% ON NON REBREATHER.
--- NOTE | 2019-05-08 16:44 | NUR ---
BREATHING IS MORE LABORED; 32 RPM. SPO2 DOWN TO 76%. RT AT BEDSIDE FOR BREATHING TREATMENT.
--- NOTE | 2019-05-08 16:58 | NUR ---
SPO2 92-94% AFTER BREATHING TREATMENT; PT RESTING SEMI FOWLERS AND RESPIRATIONS LESS LABORED. CURRENTLY AFIB ON TRANSFORMATION COACH HR IN THE 90S-100S.
--- NOTE | 2019-05-08 18:50 | NUR ---
REPORT FROM Jeremy APARICIO RN. ASSUMED PT. CARE.
--- NOTE | 2019-05-08 19:45 | NUR ---
PT. FOUND RESTING IN BED WITH EYES CLOSED. EASILY AROUSABLE TO LIGHT VERBAL STIMULI. RESPS SHALLOW, LABORED. DIMINISHED TO BASES, JOHN PAUL RLL. COARSE TO LT. UPPER LOBE. CLEAR TO RT. UPPER. BOWEL SOUNDS HYPOACTIVE. DISTIL PULSES TO LOWER EXT WEAK. RADIAL PULSES INTACT. PT. AFIB WITH RATE IN THE 100-120 RANGE, INTERMITTENTLY PACED. REPOSITIONED FOR COMFORT. PT. SPO2 IS 92% ON 15L NRB MASK. SKIN WARM AND DRY. AFEBRILE. CALL LIGHT WITHIN REACH.
--- NOTE | 2019-05-08 20:15 | NUR ---
RT AT BEDSIDE AT THIS TIME. NEB TREATMENT PROVIDED. PLACED ON 5L NASAL CANNULA ALONG WITH 15 L NRB MASK. SPO2 HAS IMPROVED TO 98% AT THIS TIME. WILL CONTINUE TO UTILIZE AND ASSESS NEED FOR BIPAP.
--- NOTE | 2019-05-08 21:14 | NUR ---
PT. MEDICATED PER PHYSICIAN ORDERS. RESPS REMAIN SHALLOW AND LABORED. NASAL CANNULA IN PLACE AT 5L AND NRB MASK AT 15 L. SPO2 IS 98% AT THIS TIME. CALL LIGHT REMAINS WITHIN REACH. WILL CONTINUE TO CLOSELY MONITOR.
--- NOTE | 2019-05-08 22:05 | NUR ---
IV FLUIDS INFUSING AT 50 CC/HR AT THIS TIME. FLAGYL INITIATED PER ORDERS. RESPS REMAIN SHALLOW, LABORED. CALL LIGHT REMAINS WTIHIN REACH. SON REMAINS AT BEDSIDE.
[2019-05-09] VITALS (9 sets, daily range): BP systolic 99–125; BP diastolic 54–76
--- NOTE | 2019-05-09 00:05 | NUR ---
PT. REMAINS AFEBRILE. REMAINS WITH SHALLOW RESPS. REMAINS RESTLESS WITH SCANT COUGH THAT IS NOT STRONG ENOUGH FOR HER TO CLEAR SECRETIONS. SON UPDATED ON PATIENTS CURRENT MEDICATIONS AND THE ABILITY TO GIVE MORPHINE IF HE FEELS LIKE SHE NEEDS IT. VERBALIZES UNDERSTANDING. WILL CONTINUE TO MONITOR.
--- NOTE | 2019-05-09 02:00 | NUR ---
PT. REPOSITIONED AGAIN TO SUPINE. NASAL CANNULA AT 5L AND NRB MASK AT [address] PT[address] REMAINS WEAK AND FRAIL. SON DID REQUEST MEDICATION FOR HER AND IT APPEARS TO HAVE EASED HER BREATHING AT THIS TIME. CALL LIGHT REMAINS WITHIN REACH.
--- NOTE | 2019-05-09 03:55 | NUR ---
PT. STATUS UNCHANGED. REMAINS LESS RESTLESS AT THIS TIME. IV FLUIDS CONTINUE TO INFUSE ORDERED. BP/HR STABLE. SPO2 IN THE LOW TO MID 90'S.
--- NOTE | 2019-05-09 04:55 | NUR ---
LAB AT BEDSIDE TO DRAW PT. SHE REMAINS AROUSABLE TO LIGHT VERBAL STIMULI. HER SPEECH REMAINS GARBLED AND VERY DIFFICULT TO UNDERSTAND. VITALS REMAIN STABLE HOWEVER. SON REMAINS AT BEDSIDE.
[2019-05-09 05:22] LABS: INTERNATIONAL NORMALIZED RATIO 2.1 RATIO (0.7-1.3); PROTHROMBIN TIME 21.6 SECONDS (9.0-12.5)
[2019-05-09 05:32] LABS: ALBUMIN 2.5 g/dL (3.2-5.0); ALKALINE PHOSPHATASE 69 u/l (38-126); ANION GAP 10 (6-22 (CALC)); BILIRUBIN, TOTAL 0.8 mg/dL (0.0-1.4); BUN 43 mg/dL (8-23); BUN/CREATININE RATIO 33 (12-20 (CALC)); CARBON DIOXIDE 28 mmol/l (22-30); CHLORIDE 101 mmol/l (95-108); CREATININE 1.3 mg/dL (0.5-1.0); GFR 39 ML/MIN (>=60 (CALC)); GFR FOR AFR.AMER. 47 ML/MIN (>=60 (CALC)); POTASSIUM 3.9 mmol/l (3.5-5.1); SGOT/AST 19 u/l (9-36); SODIUM 135 mmol/l (137-146); TOTAL PROTEIN 5.2 g/dL (6.3-8.2)
--- NOTE | 2019-05-09 06:17 | NUR ---
FLAGYL INFUSING WITHOUT SIGNS OF REACTIONS. PT. RESTING WITH EYES CLOSED IN NO DISTRESS. RESPS REMAIN SHALLOW AND INTERMITTENTLY LABORED. CALL LIGHT REMAINS WITHIN REACH.
--- NOTE | 2019-05-09 07:00 | NUR ---
PT RESTING IN BED WITH EYES CLOSED. AROUSES TO VERBAL STIMULI. RESP ARE MILDLY LABORED AND SHALLOW. PT ON NRB AT 15L AND NC AT 5L. PT SPEECH IS GARBLED. SHIFT ASSESSMENT COMPLETED AT THIS TIME. IV PATENT X1. SON AT BEDSIDE AT THIS TIME. CALL LIGHT IN REACH. WILL CONTINUE TO MONITOR.
--- NOTE | 2019-05-09 08:35 | NUR ---
DR GARY AT BEDSIDE. PLAN OF CARE DISCUSSED WITH FAMILY. HOSPICE CONSULT DECIDED.
--- NOTE | 2019-05-09 08:54 | NUR ---
CONFIRMED WITH DR PRICE TO HOLD ALL PO MEDICATIONS
--- NOTE | 2019-05-09 10:00 | NUR ---
PT RESTING IN BED VSS ON MONITOR. PT ON NRB AT THIS TIME. FAMILY AT BEDSIDE. CALL LIGHT IN REACH. WILL CONTINUE TO MONITOR.
--- NOTE | 2019-05-09 11:01 | NUR ---
MEDICATED PT WITH MORPHINE PER MAR FOR RESPIRATORY DISTRESS PER FAMILY REQUEST
--- NOTE | 2019-05-09 11:15 | NUR ---
ORAL CARE PROVIDED TO PATIENT.
--- NOTE | 2019-05-09 11:20 | NUR ---
LEROY FROM HOSPICE AT BEDSIDE
--- NOTE | 2019-05-09 12:00 | NUR ---
PT RESTING IN BED RESP CONTINUE TO BE SHALLOW AND LABORED. VSS ON MONITOR. FAMILY AT BEDSIDE CALL LIGHT IN REACH. WILL CONTINUE TO MONITOR.
--- NOTE | 2019-05-09 13:56 | NUR ---
PATHOLOGY TECH AT BEDSIDE AT THIS TIME WITH FAMILY AND PATIENT.
--- NOTE | 2019-05-09 14:44 | NUR ---
ORAL CARE PROVIDED AT THIS TIME.
--- NOTE | 2019-05-09 16:12 | NUR ---
PT RESTING INBED WITH EYES CLOSED. RESP ARE LABORED AND SHALLOW AT THIS TIME. VSS ON MONITOR. WILL CONTINUE TO MONIOTR.
--- NOTE | 2019-05-09 17:18 | NUR ---
[facility] FOR TRANSP[facility]. REPORT PROVIDED PT TRANSFERRED TO [facility].
--- NOTE | 2019-05-09 17:20 | NUR ---
PT LEFT VIA [place] SENT WITH FAMILY.
== END 2019-05-09 17:20 | disposition hospice, inpatient (51) | DRG 291 ==
LOC: ED 16:00 → ED-I 17:50 → ED 18:15 → ICU 18:16 → ED-I 18:16 → MS2 18:16 → ICU 05-06 01:47
PROVIDERS: Emergency Medicine; Internal Medicine; Nurse Practitioner Family; ADMIT Internal Medicine; ATTEND Internal Medicine
PROC: 0T9B70Z Drainage of Bladder with Drainage Device, Via Natural or Artificial Opening (ICD-10-PCS; principal; 2019-05-01)
PROC: 5A09457 Assistance with Respiratory Ventilation, 24-96 Consecutive Hours, Continuous Positive Airway Pressure (ICD-10-PCS; 2019-05-06)
DX: I13.0 Hypertensive heart and chronic kidney disease with heart failure and stage 1 through stage 4 chronic kidney disease, or unspecified chronic kidney disease (principal); J18.9 Pneumonia, unspecified organism; J96.01 Acute respiratory failure with hypoxia; G93.41 Metabolic encephalopathy; E43 Unspecified severe protein-calorie malnutrition; E87.1 Hypo-osmolality and hyponatremia; G93.1 Anoxic brain damage, not elsewhere classified; I50.9 Heart failure, unspecified; N18.3 Chronic kidney disease, stage 3 (moderate); I48.0 Paroxysmal atrial fibrillation; G20 Parkinson's disease; F02.80 Dementia in other diseases classified elsewhere, unspecified severity, without behavioral disturbance, psychotic disturbance, mood disturbance, and anxiety; D63.8 Anemia in other chronic diseases classified elsewhere; R79.1 Abnormal coagulation profile; T45.515A Adverse effect of anticoagulants, initial encounter; M62.81 Muscle weakness (generalized); E78.5 Hyperlipidemia, unspecified; Z86.79 Personal history of other diseases of the circulatory system; Z79.01 Long term (current) use of anticoagulants; Z95.0 Presence of cardiac pacemaker; Z66 Do not resuscitate; Z51.5 Encounter for palliative care; Z68.25 Body mass index [BMI] 25.0-25.9, adult; Z20.828 Contact with and (suspected) exposure to other viral communicable diseases; A49.02 Methicillin resistant Staphylococcus aureus infection, unspecified site
CPT/HCPCS: J0692; J3475